=== PATIENT | male | born 1985 | race Caucasian/White ===

== ENCOUNTER 2016-12-30 13:09 | Emergency (ER) | payer OTHER ==
[~2016-12-30 13:09] MED LIST: ACETAMINOPHEN-H1 TA2 PO; AMPICILLIN500 MG PO; ANUSOL-HC25 MG R; BACTRIM DS 8001 TA1 PO; BACTROBAN CREAM15 GM T; CELEXA10 MG PO; CEPHALEXIN500 M1 PO; CIPRO500 MG PO; CLARITIN10 MG PO; CLEOCIN150 MG PO; CYCLOBENZAPRINE10 MG PO; CYCLOBENZAPRINE5 M3 PO; Catapres-Tts 20.2 MG PO; FLONASE ALLERG9.9 ML NAS; HYDROCODONE BIT1 T11 PO; IBU800 MG PO; IBUPROFEN400 MG PO; KEFLEX500 MG PO; KLOR-CON M2020 MEQ PO; LAMICTAL100 MG PO; LANTUS100 U/ML SC; LEVEMIR100 U/ML SC; LISINOPRIL5 MG PO; LOMOTIL 0.025 M1 TA1 PO; MOTRIN800 MG PO; Motrin,Rufen800 MG PO; NAPROSYN500 MG PO; NEURONTIN100 MG PO; NEURONTIN300 MG PO; NORCO 325 MG-51 TAB PO; NOVOLIN 70100 UNIT/1 SQ; NOVOLIN R100 U/ML SC; NOVOLOG 701 UNIT/0.0 SC; NYSTATIN AND TR1 CRE T; PEN-V500 MG PO; PERIDEX 480 ML480 ML PO; ROBITUSSIN AC 110 ML PO; ULTRAM50 MG PO; VALIUM5 MG PO; VISTARIL25 M2 PO; VOLTAREN50 M1 PO; ZITHROMAX250 MG PO
[2016-12-30 13:26] VITALS: BP 130/88
[2016-12-30] MEDS ORDERED: BACTRIM 400-801 EACH PO (13:50)
== END 2016-12-30 13:57 ==
LOC: ED 13:09
DX: L02.415 Cutaneous abscess of right lower limb (principal); Z88.6 Allergy status to analgesic agent; Z79.899 Other long term (current) drug therapy; F17.200 Nicotine dependence, unspecified, uncomplicated

== ENCOUNTER 2017-04-25 19:58 | Emergency (ER) | payer OTHER ==
[~2017-04-25] VITALS: Ht 180.3 cm; Wt 74.8 kg
[~2017-04-25 19:58] MED LIST changes: +BACTRIM 400-801 EACH PO
[2017-04-25 20:19] VITALS: BP 124/81
[2017-04-25] MEDS ORDERED: SEPTDS PO (20:37)
[2017-04-25] MEDS ORDERED: KEFLEX500 M1 PO (20:37)
== END 2017-04-25 20:42 | disposition home or self-care (01) ==
LOC: ED 19:58
DX: M86.8X1 Other osteomyelitis, shoulder (principal); E10.65 Type 1 diabetes mellitus with hyperglycemia; E87.1 Hypo-osmolality and hyponatremia; E10.621 Type 1 diabetes mellitus with foot ulcer; F17.200 Nicotine dependence, unspecified, uncomplicated; Z79.4 Long term (current) use of insulin; Z79.899 Other long term (current) drug therapy; Z88.8 Allergy status to other drugs, medicaments and biological substances

== ENCOUNTER 2017-07-08 17:30 | Emergency (ER) | payer OTHER ==
[~2017-07-08] VITALS: Ht 177.8 cm; Wt 70.3 kg
[~2017-07-08 17:30] MED LIST changes: +KEFLEX500 M1 PO; +SEPTDS PO
[2017-07-08 18:10] VITALS: BP 135/82
[2017-07-08] MEDS ORDERED: NORCO 5-325 TA1 EACH PO (19:25)
== END 2017-07-08 19:30 | disposition home or self-care (01) ==
LOC: ED 17:30
DX: S62.337A Displaced fracture of neck of fifth metacarpal bone, left hand, initial encounter for closed fracture (principal); F17.200 Nicotine dependence, unspecified, uncomplicated; E10.621 Type 1 diabetes mellitus with foot ulcer; L97.509 Non-pressure chronic ulcer of other part of unspecified foot with unspecified severity; Z79.899 Other long term (current) drug therapy; Z88.6 Allergy status to analgesic agent; Z79.4 Long term (current) use of insulin; W22.03XA Walked into furniture, initial encounter; Y93.89 Activity, other specified; Y92.89 Other specified places as the place of occurrence of the external cause; Y99.9 Unspecified external cause status

== ENCOUNTER 2017-07-14 09:52 | Emergency (ER) | payer SELFPAY ==
[~2017-07-14] VITALS: Wt 74.8 kg
[~2017-07-14 09:52] MED LIST changes: +NORCO 5-325 TA1 EACH PO
[2017-07-14 09:58] VITALS: BP 139/92
[2017-07-14] MEDS ORDERED: NAPROSYN500 MG PO (10:06)
== END 2017-07-14 10:45 | disposition home or self-care (01) ==
LOC: ED 09:52
DX: S62.337D Displaced fracture of neck of fifth metacarpal bone, left hand, subsequent encounter for fracture with routine healing (principal); R03.0 Elevated blood-pressure reading, without diagnosis of hypertension; F17.200 Nicotine dependence, unspecified, uncomplicated; Z88.6 Allergy status to analgesic agent; Z79.899 Other long term (current) drug therapy; X58.XXXD Exposure to other specified factors, subsequent encounter

== ENCOUNTER → 2017-07-21 | Outpatient (CLI) | payer SELFPAY ==
[2017-07-21 17:19] LABS: HEMATOCRIT 41.7 % (42.0-52.0); HEMOGLOBIN 14.2 g/dl (14.0-18.0); MEAN CELL VOLUME 92.5 fl (80.0-94.0); MEAN CORPUSCULAR HGB 31.5 pg (27.0-31.0); MEAN CORPUSCULAR HGB CONC 34.1 g/dl (33.0-37.0); MEAN PLATELET VOLUME 11.5 fl (9.6-12.3); RED BLOOD COUNT 4.51 10*6/uL (4.50-5.90); RED CELL DISTRI WIDTH 12.7 % (0-14.5); WHITE BLOOD COUNT 6.9 10*3/uL (4.8-10.8)
[2017-07-21 17:49] LABS: ALBUMIN 3.7 gm/dl (3.1-4.5); BUN 14 mg/dl (7-24); CHLORIDE 101 mmol/L (98-107); POTASSIUM 3.9 mmol/L (3.5-5.1); SGOT/AST 23 IU/L (3-35); SODIUM 137 mmol/L (136-145)
[2017-07-21 17:50] LABS: ALKALINE PHOSPHATASE 130 U/L (45-117); CREATININE 1.07 mg/dL (0.70-1.30); SGPT/ALT 27 U/L (12-78); TOTAL PROTEIN 7.2 gm/dL (6.4-8.2)
== END | disposition home or self-care (01) ==
LOC: RESCLI 02:18
PROVIDERS: Internal Medicine
DX: F41.9 Anxiety disorder, unspecified (principal); M62.838 Other muscle spasm; E10.9 Type 1 diabetes mellitus without complications; G62.9 Polyneuropathy, unspecified; F32.9 Major depressive disorder, single episode, unspecified; Z87.891 Personal history of nicotine dependence

== ENCOUNTER → 2017-08-04 | Outpatient (CLI) | payer SELFPAY | END | disposition home or self-care (01) | LOC: RESCLI 03:00 | DX: F41.9 Anxiety disorder, unspecified (principal); E10.9 Type 1 diabetes mellitus without complications; G62.9 Polyneuropathy, unspecified; F31.9 Bipolar disorder, unspecified; N52.1 Erectile dysfunction due to diseases classified elsewhere ==

== ENCOUNTER 2017-09-22 13:03 | Emergency (ER) | payer SELFPAY ==
[~2017-09-22] VITALS: Ht 180.3 cm; Wt 72.6 kg
[2017-09-22 13:13] VITALS: BP 98/67
[2017-09-22 13:37] LABS: BASO # 0.1 10*3/uL (0.0-0.1); BASO % 0.8 % (0.0-1.0); EOS # 0.2 10*3/uL (0.0-0.4); HEMATOCRIT 42.7 % (42.0-52.0); HEMOGLOBIN 14.7 g/dl (14.0-18.0); LYMPH # 2.8 10*3/uL (1.3-4.4); LYMPH % 26.3 % (27.0-41.0); MEAN CELL VOLUME 90.1 fl (80.0-94.0); MEAN CORPUSCULAR HGB CONC 34.4 g/dl (33.0-37.0); MEAN PLATELET VOLUME 11.1 fl (9.6-12.3); MONO # 0.5 10*3/uL (0.1-1.0); MONO % 5.1 % (3.0-9.0); NEUT # 6.9 10*3/uL (2.3-7.9); NEUT % 65.6 % (47.0-73.0); PLATELET COUNT AUTOMATED 183 10*3/uL (130-400); RED BLOOD COUNT 4.74 10*6/uL (4.50-5.90); RED CELL DISTRI WIDTH 12.2 % (0-14.5); WHITE BLOOD COUNT 10.5 10*3/uL (4.8-10.8)
[2017-09-22 13:51] LABS: ALBUMIN 4.1 gm/dl (3.1-4.5); ALKALINE PHOSPHATASE 122 U/L (45-117); BUN 20 mg/dl (7-24); CHLORIDE 102 mmol/L (98-107); CREATININE 1.52 mg/dL (0.70-1.30); POTASSIUM 4.1 mmol/L (3.5-5.1); SGOT/AST 20 IU/L (3-35); SGPT/ALT 28 U/L (12-78); SODIUM 137 mmol/L (136-145); TOTAL PROTEIN 7.3 gm/dL (6.4-8.2); TROPONIN I < 0.015 ng/ml (<0.045)
== END 2017-09-22 14:40 | disposition home or self-care (01) ==
LOC: ED 13:03
PROVIDERS: Nurse Practitioner Family
DX: E86.0 Dehydration (principal); M54.2 Cervicalgia; R05 Cough; R53.83 Other fatigue; R52 Pain, unspecified; R06.00 Dyspnea, unspecified; E10.9 Type 1 diabetes mellitus without complications; F17.200 Nicotine dependence, unspecified, uncomplicated; Z79.4 Long term (current) use of insulin; Z88.6 Allergy status to analgesic agent; Z79.899 Other long term (current) drug therapy

== ENCOUNTER → 2017-09-30 | Outpatient (CLI) | payer SELFPAY | END | disposition home or self-care (01) | LOC: LAB 01:22 → RESCLI 01:22 | DX: E10.9 Type 1 diabetes mellitus without complications (principal) ==

== ENCOUNTER → 2018-01-08 | Outpatient (CLI) | payer SELFPAY ==
[~2018-01-08] MED LIST changes: +CLINDAMYCIN150 MG PO; +VIBRAMYCIN100 MG PO; +XANAX0.5 MG PO; +ZANAFLEX4 M1 PO; +ZOFRAN ODT4 MG SL
== END | disposition home or self-care (01) ==
LOC: RESCLI 02:30
DX: Z09 Encounter for follow-up examination after completed treatment for conditions other than malignant neoplasm (principal); E10.9 Type 1 diabetes mellitus without complications; G62.9 Polyneuropathy, unspecified; F41.9 Anxiety disorder, unspecified; F32.9 Major depressive disorder, single episode, unspecified; S92.901D Unspecified fracture of right foot, subsequent encounter for fracture with routine healing; F17.200 Nicotine dependence, unspecified, uncomplicated; Z82.49 Family history of ischemic heart disease and other diseases of the circulatory system; Z83.3 Family history of diabetes mellitus; Z71.6 Tobacco abuse counseling; X58.XXXD Exposure to other specified factors, subsequent encounter

== ENCOUNTER 2018-01-31 17:00 | Emergency (ER) | payer OTHER ==
[~2018-01-31] VITALS: Wt 68.9 kg
[~2018-01-31 17:00] MED LIST changes: -VIBRAMYCIN100 MG PO; -XANAX0.5 MG PO; -ZANAFLEX4 M1 PO; -ZOFRAN ODT4 MG SL
[2018-01-31 17:01] VITALS: BP 146/92
[2018-01-31] MEDS ORDERED: ZANAFLEX4 M1 PO (17:12)
[2018-01-31 17:54] LABS: BASO # 0.1 10*3/uL (0.0-0.1); BASO % 0.4 % (0.0-1.0); EOS % 0.2 % (1.0-4.0); HEMATOCRIT 49.4 % (42.0-52.0); HEMOGLOBIN 16.9 g/dl (14.0-18.0); LYMPH % 5.9 % (27.0-41.0); MEAN CELL VOLUME 91.8 fl (80.0-94.0); MEAN CORPUSCULAR HGB 31.4 pg (27.0-31.0); MEAN CORPUSCULAR HGB CONC 34.2 g/dl (33.0-37.0); MEAN PLATELET VOLUME 11.1 fl (9.6-12.3); MONO # 0.8 10*3/uL (0.1-1.0); MONO % 4.7 % (3.0-9.0); NEUT # 15.1 10*3/uL (2.3-7.9); NEUT % 88.5 % (47.0-73.0); PLATELET COUNT AUTOMATED 222 10*3/uL (130-400); RED BLOOD COUNT 5.38 10*6/uL (4.50-5.90); RED CELL DISTRI WIDTH 12.2 % (0-14.5); WHITE BLOOD COUNT 17.1 10*3/uL (4.8-10.8)
[2018-01-31 18:09] LABS: ALBUMIN 3.8 gm/dl (3.1-4.5); CREATININE 1.74 mg/dL (0.70-1.30); POTASSIUM 4.4 mmol/L (3.5-5.1); TOTAL PROTEIN 8.9 gm/dL (6.4-8.2)
[2018-01-31] MEDS ORDERED: ZOFRAN ODT4 MG SL (18:53)
[2018-01-31] MEDS ORDERED: ZITHROMAX250 MG PO (18:55)
[2018-02-02] MEDS ORDERED: NOVOLIN 70100 UNIT/1 SQ (23:47)
== END 2018-01-31 19:15 | disposition home or self-care (01) ==
LOC: ED 17:00
PROVIDERS: Emergency Medicine
DX: J40 Bronchitis, not specified as acute or chronic (principal); K29.70 Gastritis, unspecified, without bleeding; E10.9 Type 1 diabetes mellitus without complications; E10.40 Type 1 diabetes mellitus with diabetic neuropathy, unspecified; F17.200 Nicotine dependence, unspecified, uncomplicated; Z88.6 Allergy status to analgesic agent; Z79.4 Long term (current) use of insulin

== ENCOUNTER 2018-02-12 09:59 | Inpatient (IN) | payer OTHER ==
[~2018-02-12] VITALS: Ht 180.3 cm; Wt 70.1 kg
[~2018-02-12 09:59] MED LIST changes: +ZANAFLEX4 M1 PO; +ZOFRAN ODT4 MG SL
[2018-02-12 10:02] VITALS: BP 130/93
[2018-02-12 10:44] LABS: BASO # 0.1 10*3/uL (0.0-0.1); BASO % 0.9 % (0.0-1.0); EOS # 0.3 10*3/uL (0.0-0.4); EOS % 2.9 % (1.0-4.0); HEMATOCRIT 44.2 % (42.0-52.0); HEMOGLOBIN 14.9 g/dl (14.0-18.0); LYMPH % 20.8 % (27.0-41.0); MEAN CELL VOLUME 91.5 fl (80.0-94.0); MEAN CORPUSCULAR HGB 30.8 pg (27.0-31.0); MEAN CORPUSCULAR HGB CONC 33.7 g/dl (33.0-37.0); MEAN PLATELET VOLUME 10.7 fl (9.6-12.3); MONO # 0.6 10*3/uL (0.1-1.0); MONO % 6.5 % (3.0-9.0); NEUT # 6.5 10*3/uL (2.3-7.9); NEUT % 68.6 % (47.0-73.0); PLATELET COUNT AUTOMATED 257 10*3/uL (130-400); RED BLOOD COUNT 4.83 10*6/uL (4.50-5.90); RED CELL DISTRI WIDTH 12.1 % (0-14.5); WHITE BLOOD COUNT 9.5 10*3/uL (4.8-10.8)
[2018-02-12 10:59] LABS: ALBUMIN 3.4 gm/dl (3.1-4.5); ALKALINE PHOSPHATASE 150 U/L (45-117); BUN 15 mg/dl (7-24); CHLORIDE 95 mmol/L (98-107); CREATININE 1.32 mg/dL (0.70-1.30); POTASSIUM 4.3 mmol/L (3.5-5.1); SGOT/AST 14 IU/L (3-35); SGPT/ALT 18 U/L (12-78); SODIUM 131 mmol/L (136-145); TOTAL PROTEIN 8.2 gm/dL (6.4-8.2)
[2018-02-12 13:08] VITALS: BP 122/84
[2018-02-12 13:30] VITALS: BP 119/90
[2018-02-12] MEDS ORDERED: XANAX0.5 MG PO (14:31)
[2018-02-12 16:00] VITALS: BP 152/96
[2018-02-12 20:00] VITALS: BP 131/88
[2018-02-13] VITALS: BP 136/89
[2018-02-13 06:29] LABS: BASO # 0.1 10*3/uL (0.0-0.1); BASO % 0.7 % (0.0-1.0); EOS # 0.3 10*3/uL (0.0-0.4); EOS % 3.8 % (1.0-4.0); HEMATOCRIT 38.7 % (42.0-52.0); LYMPH # 2.4 10*3/uL (1.3-4.4); LYMPH % 28.3 % (27.0-41.0); MEAN CORPUSCULAR HGB 30.5 pg (27.0-31.0); MEAN CORPUSCULAR HGB CONC 32.8 g/dl (33.0-37.0); MEAN PLATELET VOLUME 11.1 fl (9.6-12.3); MONO # 0.6 10*3/uL (0.1-1.0); MONO % 7.4 % (3.0-9.0); NEUT % 59.4 % (47.0-73.0); PLATELET COUNT AUTOMATED 230 10*3/uL (130-400); RED BLOOD COUNT 4.16 10*6/uL (4.50-5.90); WHITE BLOOD COUNT 8.4 10*3/uL (4.8-10.8)
[2018-02-13 06:33] LABS: HEMOGLOBIN 12.7 g/dl (14.0-18.0)
[2018-02-13 06:46] LABS: ACT PARTIAL THROMBO TIME 25.1 SECONDS (20.8-31.5); ALBUMIN 2.6 gm/dl (3.1-4.5); ALKALINE PHOSPHATASE 125 U/L (45-117); BUN 14 mg/dl (7-24); CHLORIDE 103 mmol/L (98-107); CHOLESTEROL 119 mg/dL (<200); CREATININE 1.08 mg/dL (0.70-1.30); FREE T4 1.06 ng/dl (0.76-1.46); HDL CHOLESTEROL 41 mg/dl (40-60); LDL CHOLESTEROL 62 mg/dL (9-159); PHOSPHOROUS 3.5 mg/dL (2.5-4.9); POTASSIUM 4.4 mmol/L (3.5-5.1); SGOT/AST 12 IU/L (3-35); SGPT/ALT 15 U/L (12-78); SODIUM 139 mmol/L (136-145); TOTAL PROTEIN 6.4 gm/dL (6.4-8.2); TRIGLYCERIDES 82 mg/dl (<150); VLDL CHOLESTEROL 16 mg/dL (6-40)
[2018-02-13 07:30] LABS: VITAMIN D, 25-HYDROXY 28.9 ng/mL (30-100)
[2018-02-13 08:00] VITALS: BP 130/80
[2018-02-13 12:00] VITALS: BP 147/90
[2018-02-13] MEDS ORDERED: VIBRAMYCIN100 MG PO (15:01)
== END 2018-02-13 15:54 | disposition home or self-care (01) | DRG 571 ==
LOC: ED 09:59 → 5E 13:13 → EDHOLD 13:13 → 5E 13:17
PROVIDERS: Internal Medicine; Physician Assistant
PROC: 0JBR0ZZ Excision of Left Foot Subcutaneous Tissue and Fascia, Open Approach (ICD-10-PCS; principal; 2018-02-13)
DX: L03.116 Cellulitis of left lower limb (principal); L02.612 Cutaneous abscess of left foot; E87.1 Hypo-osmolality and hyponatremia; E44.1 Mild protein-calorie malnutrition; E10.42 Type 1 diabetes mellitus with diabetic polyneuropathy; D72.810 Lymphocytopenia; R00.0 Tachycardia, unspecified; E10.610 Type 1 diabetes mellitus with diabetic neuropathic arthropathy; E10.65 Type 1 diabetes mellitus with hyperglycemia; E87.8 Other disorders of electrolyte and fluid balance, not elsewhere classified; Z88.8 Allergy status to other drugs, medicaments and biological substances; Z83.3 Family history of diabetes mellitus; Z82.0 Family history of epilepsy and other diseases of the nervous system; Z86.14 Personal history of Methicillin resistant Staphylococcus aureus infection; Z72.0 Tobacco use; Z71.6 Tobacco abuse counseling; Z68.30 Body mass index [BMI] 30.0-30.9, adult

== ENCOUNTER 2018-10-16 22:09 | Emergency (ER) | payer OTHER ==
[~2018-10-16] VITALS: Ht 180.3 cm; Wt 69.4 kg
[~2018-10-16 22:09] MED LIST changes: +LEVOFLOXACIN500 MG PO; +ONDANSETRON HYDR4 M1 PO; +OXYCODONE HCL5 MG PO; +VIBRAMYCIN100 MG PO; +VITAMIN D-32000 UNI1 PO; +XANAX0.5 MG PO; +XANAX1 MG PO
[2018-10-16 22:15] VITALS: BP 147/95
[2018-10-16 23:08] LABS: BASO # 0.1 10*3/uL (0.0-0.1); BASO % 0.8 % (0.0-1.0); EOS # 0.4 10*3/uL (0.0-0.4); EOS % 4.6 % (1.0-4.0); HEMATOCRIT 34.9 % (42.0-52.0); HEMOGLOBIN 11.3 g/dl (14.0-18.0); LYMPH % 23.1 % (27.0-41.0); MEAN CELL VOLUME 85.7 fl (80.0-94.0); MEAN CORPUSCULAR HGB 27.8 pg (27.0-31.0); MEAN CORPUSCULAR HGB CONC 32.4 g/dl (33.0-37.0); MEAN PLATELET VOLUME 9.9 fl (9.6-12.3); MONO # 0.6 10*3/uL (0.1-1.0); MONO % 6.9 % (3.0-9.0); NEUT # 5.5 10*3/uL (2.3-7.9); NEUT % 64.4 % (47.0-73.0); PLATELET COUNT AUTOMATED 327 10*3/uL (130-400); RED BLOOD COUNT 4.07 10*6/uL (4.50-5.90); RED CELL DISTRI WIDTH 13.2 % (0-14.5); WHITE BLOOD COUNT 8.6 10*3/uL (4.8-10.8)
[2018-10-16 23:23] LABS: ALBUMIN 2.4 gm/dl (3.1-4.5); ALKALINE PHOSPHATASE 149 U/L (45-117); BUN 11 mg/dl (7-24); CHLORIDE 100 mmol/L (98-107); CREATININE 1.13 mg/dL (0.70-1.30); POTASSIUM 3.9 mmol/L (3.5-5.1); SGOT/AST 13 IU/L (3-35); SGPT/ALT 13 U/L (12-78); SODIUM 134 mmol/L (136-145); TOTAL PROTEIN 7.5 gm/dL (6.4-8.2)
[2018-10-16 23:28] LABS: ACETAMINOPHEN (TYLENOL) < 2.0 ug/ml (10-30); ETHYL ALCOHOL < 3.0 mg/dl (<3)
[2018-10-17 03:35] LABS: BILIRUBIN NEGATIVE (NEGATIVE); BLOOD 1+ (NEGATIVE); CLARITY CLEAR (CLEAR); COLOR YELLOW (YELLOW); GLUCOSE 3+ (NEGATIVE); KETONE NEGATIVE (NEGATIVE); LEUKO ESTERASE NEGATIVE (NEGATIVE); NITRITE NEGATIVE (NEGATIVE); UROBILINOGEN 0.2 E.U./dl (0.2-1.0)
[2018-10-17 03:43] LABS: URINE AMPHETAMINES < 1000 (1000ng/ml); URINE BARBITURATES < 200 (200ng/ml); URINE BENZODIAZEPINES < 200 (200ng/ml); URINE CANNABINOIDS (THC) < 50 (50ng/ml); URINE COCAINE < 300 (300ng/ml); URINE METHADONE < 300 (300ng/ml); URINE OPIATES < 300 (300ng/ml)
[2018-10-17 03:44] LABS: URINE PHENCYCLIDINE < 25 (25ng/ml)
[2018-10-17 03:48] LABS: BACTERIA 1+; WBC 0-2 wbc/hpf (0-5)
== END 2018-10-17 16:15 | disposition short-term general hospital (02) ==
LOC: ED 22:09
PROVIDERS: Student in an Organized Health Care Education/Training Program
DX: F32.9 Major depressive disorder, single episode, unspecified (principal); M79.671 Pain in right foot; G89.29 Other chronic pain; E10.40 Type 1 diabetes mellitus with diabetic neuropathy, unspecified; I10 Essential (primary) hypertension; F17.210 Nicotine dependence, cigarettes, uncomplicated; Z88.6 Allergy status to analgesic agent; Z79.4 Long term (current) use of insulin; Z79.899 Other long term (current) drug therapy

== ENCOUNTER 2019-04-05 13:23 | Emergency (ER) | payer OTHER ==
[~2019-04-05] VITALS: Ht 180.3 cm; Wt 77.1 kg
[2019-04-05 13:24] VITALS: BP 141/82
[2019-04-05] MEDS ORDERED: NAPROSYN500 MG PO (15:56)
== END 2019-04-05 15:48 | disposition home or self-care (01) ==
LOC: ED 13:23
DX: M25.561 Pain in right knee (principal); M79.89 Other specified soft tissue disorders; L53.9 Erythematous condition, unspecified; E11.9 Type 2 diabetes mellitus without complications; F17.210 Nicotine dependence, cigarettes, uncomplicated; Z89.511 Acquired absence of right leg below knee; Z88.6 Allergy status to analgesic agent; Z88.8 Allergy status to other drugs, medicaments and biological substances; Z79.4 Long term (current) use of insulin; Z79.899 Other long term (current) drug therapy; Z79.2 Long term (current) use of antibiotics

== ENCOUNTER 2019-04-12 22:47 | Inpatient (IN) | payer OTHER ==
[~2019-04-12] VITALS: Ht 180.3 cm; Wt 71.7 kg
[2019-04-12 22:48] VITALS: BP 140/86
--- NOTE | 2019-04-12 23:20 | NUR ---
PTS FIANCES NUMBER, TRACEY [phone].
[2019-04-12 23:49] LABS: BASO # 0.1 10*3/uL (0.0-0.1); BASO % 0.6 % (0.0-1.0); EOS # 0.1 10*3/uL (0.0-0.4); EOS % 0.6 % (1.0-4.0); HEMATOCRIT 33.4 % (42.0-52.0); HEMOGLOBIN 11.3 g/dl (14.0-18.0); LYMPH # 1.7 10*3/uL (1.3-4.4); LYMPH % 10.3 % (27.0-41.0); MEAN CELL VOLUME 88.6 fl (80.0-94.0); MEAN CORPUSCULAR HGB CONC 33.8 g/dl (33.0-37.0); MEAN PLATELET VOLUME 11.2 fl (9.6-12.3); MONO # 1.2 10*3/uL (0.1-1.0); MONO % 7.6 % (3.0-9.0); NEUT % 80.6 % (47.0-73.0); PLATELET COUNT AUTOMATED 331 10*3/uL (130-400); RED BLOOD COUNT 3.77 10*6/uL (4.50-5.90); RED CELL DISTRI WIDTH 12.9 % (0-14.5); WHITE BLOOD COUNT 16.1 10*3/uL (4.8-10.8)
[2019-04-12 23:57] VITALS: BP 127/87
[2019-04-13] VITALS (9 sets, daily range): BP systolic 113–129; BP diastolic 44–81
[2019-04-13 00:04] LABS: ALBUMIN 2.8 gm/dl (3.1-4.5); ALKALINE PHOSPHATASE 117 U/L (45-117); BUN 24 mg/dl (7-24); CHLORIDE 92 mmol/L (98-107); CREATININE 1.55 mg/dL (0.70-1.30); POTASSIUM 4.1 mmol/L (3.5-5.1); SGOT/AST 10 IU/L (3-35); SGPT/ALT 10 U/L (12-78); SODIUM 126 mmol/L (136-145); TOTAL PROTEIN 7.7 gm/dL (6.4-8.2)
--- NOTE | 2019-04-13 00:30 | NUR ---
PT RESTING IN BED. STATES THAT HIS PAIN IN MORE "TOLERABLE" HE IS IN NO ACUTE DISTRESS AT THIS TIME. VS STABLE. WILL CONTINUE TO MONITOR
--- NOTE | 2019-04-13 01:30 | NUR ---
A 33, admitted to 4E, under the services of JAVIER Reyes DO with a diagnosis of HYPERGLYCEMIA, RIGHT KNEE PAIN. Chief complaint is RIGHT KNEE PAIN. Patient arrived via stretcher from ER. Monitor applied. Initial assessment completed. Vital signs taken and recorded. JAVIER REYES DO notified of admission to the unit. Orders received. See assessment for past medical history, medications and allergies. Patient and/or family oriented to unit. [facility] visitation policy reviewed. Clothing/patient valuable form completed. JAGRUTI SKINNER
--- NOTE | 2019-04-13 02:00 | NUR ---
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 Wound staged as stage II.
[2019-04-13 03:19] LABS: BASO # 0.1 10*3/uL (0.0-0.1); BASO % 0.5 % (0.0-1.0); EOS # 0.2 10*3/uL (0.0-0.4); EOS % 1.6 % (1.0-4.0); HEMATOCRIT 32.6 % (42.0-52.0); HEMOGLOBIN 10.9 g/dl (14.0-18.0); LYMPH # 1.9 10*3/uL (1.3-4.4); LYMPH % 12.9 % (27.0-41.0); MEAN CELL VOLUME 88.6 fl (80.0-94.0); MEAN CORPUSCULAR HGB 29.6 pg (27.0-31.0); MEAN CORPUSCULAR HGB CONC 33.4 g/dl (33.0-37.0); MEAN PLATELET VOLUME 10.6 fl (9.6-12.3); MONO # 1.1 10*3/uL (0.1-1.0); MONO % 7.5 % (3.0-9.0); NEUT # 11.4 10*3/uL (2.3-7.9); NEUT % 77.1 % (47.0-73.0); PLATELET COUNT AUTOMATED 295 10*3/uL (130-400); RED BLOOD COUNT 3.68 10*6/uL (4.50-5.90); RED CELL DISTRI WIDTH 12.9 % (0-14.5); WHITE BLOOD COUNT 14.7 10*3/uL (4.8-10.8)
[2019-04-13 03:33] LABS: BUN 23 mg/dl (7-24); CHLORIDE 96 mmol/L (98-107); SODIUM 131 mmol/L (136-145)
[2019-04-13 03:35] LABS: ALBUMIN 2.6 gm/dl (3.1-4.5); ALKALINE PHOSPHATASE 102 U/L (45-117); BUN 24 mg/dl (7-24); CHLORIDE 96 mmol/L (98-107); CHOLESTEROL 100 mg/dL (<200); HDL CHOLESTEROL 29 mg/dl (40-60); PHOSPHOROUS 3.2 mg/dL (2.5-4.9); SGOT/AST 8 IU/L (3-35); SGPT/ALT 9 U/L (12-78); SODIUM 131 mmol/L (136-145); TOTAL PROTEIN 7.1 gm/dL (6.4-8.2)
[2019-04-13 03:41] LABS: LDL CHOLESTEROL 52 mg/dL (9-159); TRIGLYCERIDES 97 mg/dl (<150); VLDL CHOLESTEROL 19 mg/dL (6-40)
--- NOTE | 2019-04-13 05:24 | NUR ---
CARLOS A QUILES [id number] Please refer to the physician's history and physical for past medical history, comorbid conditions, and allergies. Diagnosis: HYPERGLYCEMIA DUE TO TYPE 1 DIABETES, ABSCESS Asaf Score: 19,LOW OR NO RISK WOUND DESCRIPTIONS: Wound Number: 1 Location of the wound: right lateral knee Type of wound: medical educator related pressure injury stage 2 Thickness: Partial Size: 1.7cm x 1.5cm x 0.1cm Tunneling: none Undermining: none Sinus Tract: none Presence of Exudate: Serosanguineous Amount: Light Color: Red Odor: None Periwound Skin Appearance: erythema 17.5cm x 15.0cm Wound edges: approximated Pain (associated with wound): none at time of assessment How does patient state this happened? pt stated it started hurting one week ago and the redness started 3 days ago he states that he had the surgery back in february at [facility] Wound Number: 2 Location of the wound: right medial aspect of knee Type of wound: medical educator related pressure injury unstageable Thickness: Partial Size: 0.4cm x 0.6cm x <0.1cm Tunneling: none Undermining: none Sinus Tract: none Presence of Exudate: none Amount: none Color: yellow Odor: None Periwound Skin Appearance: erythema 17.5cm x 15.0cm Wound edges: approximated Pain (associated with wound): none at time of assessment How does patient state this happened? pt stated it started hurting one week ago and the redness started 3 days ago he states that he had the surgery back in february at [facility] Wound Number: 3 Location of the wound: right lateral aspect of stump Type of wound: medical educator related pressure injury unstageable Thickness: Partial Size: 0.6cm x 0.4cm x <0.1cm Tunneling: none Undermining: none Sinus Tract: none Presence of Exudate: none Amount: none Color: yellow, brown, red Odor: None Periwound Skin Appearance: erythema 17.5cm x 15cm Wound edges: approximated Pain (associated with wound): none at time of assessment How does patient state this happened? pt stated it started hurting one week ago and the redness started 3 days ago he states that he had the surgery back in february at [facility] Surface the patient is resting on: Isoflex SKIN PREVENTION RECOMMENDATION: 1. Pressure redistribution support surface as appropriate 2. Elevate heels 3. Remove boots/TEDS every shift and reapply 4. Head of bed 30 degrees as tolerated 5. Assess nutrition and hydration 6. Manage moisture 7. Avoid the use of containment devices while in bed 8. Use absorptive products on surfaces limit layers of linens on bed 9. Turn and reposition every 1-2 hours in bed and every 1 hour in chair as tolerated 10. Weight shifts every 15 minutes while up in chair 11. Offloading with pillows or device to keep heels elevated off bed 12. Monitor skin at least every shift 13. Inspect under medical devices twice a day WOUND TREATMENT RECOMMENDATIONS: Dr. Nielsen is on consult for abscess. Full thickness guidelines: Cleanse right lateral knee, right medial aspect of knee and right distal stump with nss and apply sureprep around the wound therahoney to wound bed and cover with dsd daily and prn for soiling.
--- NOTE | 2019-04-13 06:20 | NUR ---
CALL PLACED TO DR. ROMERO REGARDING BLOOD SUGAR OF 374 AND 20 UNITS NEEDED PER SLIDING SCALE, HE ADVISED ME TO GIVE THE 20 UNITS AND FOR DAY SHIFT TO HOLD 1000 INSULIN. DOCUMENTED ON JUL.
--- NOTE | 2019-04-13 06:31 | NUR ---
CALL PLACED TO DR. BATES, REACHED ANSWERING SERVICE, SPOKE WITH JOSE ANGEL, GAVE REFERAL FOR CONULT FOR LOW SODIUM LEVEL. CALLED AND SPOKE WITH DR. ALEXANDER ADVISED OF CONSULT ORDER FOR ABCESS RIGHT KNEE/STUMP.
--- NOTE | 2019-04-13 09:02 | NUR ---
Dr. Blair notified of wound care recommendations.
--- NOTE | 2019-04-13 09:43 | NUR ---
IN TO SEE PT.
--- NOTE | 2019-04-13 09:46 | NUR ---
OFF FLOOR FOR ULTRASOUND
--- NOTE | 2019-04-13 10:58 | NUR ---
MESSAGE FOR CONSULT LEFT ON 'S ANSWERING SERVICE. AWAITING CALL BACK.
--- NOTE | 2019-04-13 12:24 | NUR ---
PER PT, MORPHINE WAS INEFFECTIVE FOR PAIN. PAIN RATED 10/10. NOTIFIED . SAID HE WOULD ORDER SOMETHING ELSE.
--- NOTE | 2019-04-13 16:00 | NUR ---
OFF FLOOR FOR I&D WITH .
--- NOTE | 2019-04-13 17:46 | NUR ---
CONSULT CALLED TO 'S ANSWERING SERVICE.
--- NOTE | 2019-04-13 17:48 | NUR ---
CALLED BACK. SAID SHE WOULD SEE THE PT TOMORROW.
[2019-04-13 18:50] LABS: BODY FLUID WBC 1168 /uL
--- NOTE | 2019-04-13 19:05 | NUR ---
ARRIVED ON SHIFT, PATIENT CURRENTLY OFF FLOOR IN SURGERY, RECEIVED REPORT FROM OFFGOING NURSE, AND SURGICAL NURSE. WHITE BOARD UPDATED. JAGRUTI VALENTINN, RN
[2019-04-13 19:30] LABS: BF LYMPHOCYTES 9 %; BF MONOCYTES 8 %; BF NEUTROPHILS 82 %
--- NOTE | 2019-04-13 19:45 | NUR ---
24 HR chart check completed.
[2019-04-13 20:42] LABS: BILIRUBIN NEGATIVE (NEGATIVE); BLOOD TRACE-INTACT (NEGATIVE); CLARITY CLEAR (CLEAR); COLOR YELLOW (YELLOW); GLUCOSE 3+ (NEGATIVE); KETONE 1+ (NEGATIVE); LEUKO ESTERASE NEGATIVE (NEGATIVE); NITRITE NEGATIVE (NEGATIVE); PH 5.5 (5.0-9.0); UROBILINOGEN 0.2 E.U./dl (0.2-1.0)
[2019-04-13 20:48] LABS: MUCOUS 1+
[2019-04-14] VITALS: BP 128/65
--- NOTE | 2019-04-14 05:41 | NUR ---
PATIENT SLEPT THROUGHOUT THE NIGHT, DID NOT AWAKEN WHEN I HUNG PATIENTS IV ATB. RESPIRATIONS EVEN AND NON LABORED, HR REMAINS ELEVATED AT 100 +.
--- NOTE | 2019-04-14 06:01 | NUR ---
PATIENT C/O PAIN TO RIGHT STUMP 6/10 MEDICATED WITH PERCOCET ORDERED.
[2019-04-14 07:18] LABS: BASO # 0.1 10*3/uL (0.0-0.1); BASO % 0.4 % (0.0-1.0); EOS # 0.1 10*3/uL (0.0-0.4); EOS % 0.9 % (1.0-4.0); HEMATOCRIT 30.7 % (42.0-52.0); HEMOGLOBIN 9.7 g/dl (14.0-18.0); LYMPH # 2.1 10*3/uL (1.3-4.4); LYMPH % 12.9 % (27.0-41.0); MEAN CELL VOLUME 89.8 fl (80.0-94.0); MEAN CORPUSCULAR HGB 28.4 pg (27.0-31.0); MEAN CORPUSCULAR HGB CONC 31.6 g/dl (33.0-37.0); MEAN PLATELET VOLUME 10.7 fl (9.6-12.3); MONO # 1.2 10*3/uL (0.1-1.0); MONO % 7.8 % (3.0-9.0); NEUT # 12.3 10*3/uL (2.3-7.9); NEUT % 77.3 % (47.0-73.0); PLATELET COUNT AUTOMATED 302 10*3/uL (130-400); RED BLOOD COUNT 3.42 10*6/uL (4.50-5.90); RED CELL DISTRI WIDTH 13.2 % (0-14.5); WHITE BLOOD COUNT 15.9 10*3/uL (4.8-10.8)
[2019-04-14 07:41] LABS: BUN 16 mg/dl (7-24); CHLORIDE 104 mmol/L (98-107); CREATININE 1.27 mg/dL (0.70-1.30); POTASSIUM 4.1 mmol/L (3.5-5.1); SODIUM 137 mmol/L (136-145)
[2019-04-14 08:00] VITALS: BP 120/64
--- NOTE | 2019-04-14 08:50 | NUR ---
Dr. Blair notified of wound care recommendations.
--- NOTE | 2019-04-14 09:00 | NUR ---
Sample Book Maker in to talk to patient. Patient states lives at home with family. There are few steps in the home. Physician: marianela harris Pharmacy: [facility] Home health services: none Patient's level of ADLs: INDEPENDENT Patient has working utilities: all working DME: patient states he has all that he needs, will not ellaborate on equipment he has at home Follow-up physician's appointment after d/c: will be made by hospitalist nurse director upon discharge Does patient want to access PORTAL?: no Discharge plan discussed with patient, he stated he lives at home, he states he is independent in adls and ambulation, he will return home when medically stable, when asked if there were any home needs patient stated he has everything he needs at home and the only person he wants to talk to is the doctor on when he can be discharged, case management will follow. MARANDA PAULA
--- NOTE | 2019-04-14 10:10 | NUR ---
Occupational Therapy evaluation offered this date. Patient reports he lives with his in a 2 fl home w/ 4 steps to enter, was independent in ADLs and used a prosthetic on RLE, but is currently using a knee scooter(sitting) x 1 wk since he was unable to use prosthetic on right. Patient refuses OT, wheeled walker use, bedside commode, or w/c use. Patient feels he can "hop" into the bathroom with the IV pole when needs to use the toilet. Discharge OT referral per patient;s request. Sara Flower OTR/l
[2019-04-14 12:00] VITALS: BP 122/66
--- NOTE | 2019-04-14 12:16 | NUR ---
PHYSICAL THERAPY Orders received for PT chart reviewed and attempted to see pt for evaluation however refusing any therapy or equipment at this time. States he is getting around his room with no problems "I hop" and has knee walker at home. Does not want walker or crutches. 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 Pt lives with his and she assists him as/if needed. Per pt no needs at this time and does not want any therapy at this time. Thank you Letty Duran PT
--- NOTE | 2019-04-14 14:03 | NUR ---
Nutritional Support Services Note: Pt is ordered a NCS diet. Dx of hyperglycemia due to Type I DM, abscess, BKA right lower ext. Appetite is good for meals, he is eating 100%. Pt declined diet instruction and supplement. Encouraged healthy eating. Encouraged BS control. Will follow as needed. Yanira Cardoso Rdn Ld
--- NOTE | 2019-04-14 14:07 | NUR ---
Pt has dx of severe protein calorie malnutrition. Will send pt a night snack and an afternoon snack to increase kcal and protein as he refuses a supplement at this time. Will follow. Yanira Cardoso Rdn Ld
[2019-04-14 16:00] VITALS: BP 120/68
--- NOTE | 2019-04-14 19:05 | NUR ---
ARRIVED ON SHIFT, INTRODUCED TO PATIENT, VANCOMYCIN RUNNING, NO NEEDS VOICED AT THIS TIME. WHITE BOARD UPDATED.
[2019-04-14 20:00] VITALS: BP 143/83
--- NOTE | 2019-04-14 20:03 | NUR ---
24 HR chart check completed.
--- NOTE | 2019-04-14 21:51 | NUR ---
PATIENT BLOOD SUGAR 45, HE IS ASYMPTOMATIC, HE CURRENTLY HAS NS RUNNING AT 100CC AN HOUR, GAVE 8 OUNCES OF ORANGE JUICE, REFUED TO EAT PEANUT BUTTER, GLUCOSE REFLEX ORDERED NM. TYLENOL 650MG GIVEN FOR ELEVATED TEMP.
--- NOTE | 2019-04-14 22:00 | NUR ---
DR ROMERO NOTIFIED OF BLOOD SUGAR OF 45, AND THAT I GAVE 480 CC OJ, AND OBTAINED GLUCOSE REFLEX, HE IS AGREEABLE TO THAT PLAN.
--- NOTE | 2019-04-14 22:20 | NUR ---
RECHECKED PATIENTS BLOOD SUGAR. BLOOD SUGAR NOW 99, PATIENT CONTINUES TO REFUSE PEANUT BUTTER, DR. ROMERO NOTIFIED.
--- NOTE | 2019-04-14 23:31 | NUR ---
RECHECKED, BARBIE, NOW 72, AFTER MUCH COAXING PATIENT TOOK I TABLESPOON OF PEANUT BUTTER.
[2019-04-15] VITALS (10 sets, daily range): BP systolic 109–149; BP diastolic 66–94
[2019-04-15 06:45] LABS: BASO # 0.1 10*3/uL (0.0-0.1); BASO % 0.4 % (0.0-1.0); EOS # 0.2 10*3/uL (0.0-0.4); EOS % 1.6 % (1.0-4.0); HEMATOCRIT 30.9 % (42.0-52.0); LYMPH # 1.8 10*3/uL (1.3-4.4); MEAN CELL VOLUME 89.3 fl (80.0-94.0); MEAN CORPUSCULAR HGB 28.9 pg (27.0-31.0); MEAN CORPUSCULAR HGB CONC 32.4 g/dl (33.0-37.0); MEAN PLATELET VOLUME 11.3 fl (9.6-12.3); MONO % 8.3 % (3.0-9.0); NEUT % 74.1 % (47.0-73.0); PLATELET COUNT AUTOMATED 327 10*3/uL (130-400); RED BLOOD COUNT 3.46 10*6/uL (4.50-5.90); RED CELL DISTRI WIDTH 13.1 % (0-14.5); WHITE BLOOD COUNT 12.2 10*3/uL (4.8-10.8)
[2019-04-15 06:54] LABS: BUN 11 mg/dl (7-24); CHLORIDE 107 mmol/L (98-107); CREATININE 1.03 mg/dL (0.70-1.30); POTASSIUM 4.2 mmol/L (3.5-5.1); SODIUM 139 mmol/L (136-145)
--- NOTE | 2019-04-15 09:00 | NUR ---
case management attempted to visit with patient, he is out of room for surgery, case management will visit at a later time today
--- NOTE | 2019-04-15 12:10 | NUR ---
PT REFUSING PICC LINE
--- NOTE | 2019-04-15 14:00 | NUR ---
PATIENT RE INSTRUCTED ON INCENTIVE SPIROMETRY.
--- NOTE | 2019-04-15 14:55 | NUR ---
PHYSICAL THERAPY PT reconsulted for ambulation attempted to see and evaluate pt in room however pt continues to refuse therapy stating he is "independent in room getting up on own" not using any AD discussed using a walker for safety and balance since surgery however pt states "I don't want it, I do better on my own plus they have an Iv in my wrist". Will follow for one more visit to discuss therapy if pt cont to refuse will discontinue order, thank you. Letty Duran PT
--- NOTE | 2019-04-15 15:00 | NUR ---
Patient approached for Occupational THerapy evaluation per Dr Denton for AdlS. Patient insists that he does not require any OT and that he is independent in ADLs and mobility and refuses evaluation. Patient had an I and D procedure today by Dr Denton. Right stump is wrapped in a large dressing. Patient earlier refused PICC line. He reports that he agrees to it now and was asking when it would be done.Patient understands that he needs the PICC line to received IV antibiotics. OTR will attempt OT evaluation tomorrow. If patient declines then d/c OT referral. Sara Flower OTR/L
--- NOTE | 2019-04-15 19:59 | NUR ---
TOOK OVER CARE OF PT. ASSESSMENT COMPLETE AT THIS TIME. PT REPORTS PAIN TO RIGHT KNEE DUE TO PROCEDURE DONE EARLIER IN DAY. PT REPORTS PAIN IS 6/10. PERCOCOET GIVEN AT THIS TIME. WILL MONITOR FOR EFFECTIVENESS. IV FLUIDS INFUSING INTO RIGHT ARM IV SITE. CALL LIGHT IN REACH.
--- NOTE | 2019-04-15 20:59 | NUR ---
PERCOCET EFFECTIVE PER PT.
[2019-04-16] VITALS: BP 116/70
--- NOTE | 2019-04-16 02:00 | NUR ---
PT REFUSING TO WEAR CAMPGROUND CARETAKER. PHYSICIAN NOTIFIED. WILL CONTINUE TO MONITOR. CALL LIGHT IN REACH.
--- NOTE | 2019-04-16 06:00 | NUR ---
PT RESTING IN BED AT THIS TIME. NO COMPLAINTS ARE VOICED AT THIS TIME. RESPIRATIONS EASY AND UNLABORED ON ROOM AIR. WILL CONTINUE TO MONITOR, CALL LIGHT IN REACH.
[2019-04-16 06:56] LABS: BASO # 0.1 10*3/uL (0.0-0.1); BASO % 0.7 % (0.0-1.0); EOS # 0.2 10*3/uL (0.0-0.4); EOS % 2.9 % (1.0-4.0); HEMATOCRIT 33.4 % (42.0-52.0); HEMOGLOBIN 10.7 g/dl (14.0-18.0); LYMPH # 1.6 10*3/uL (1.3-4.4); LYMPH % 20.3 % (27.0-41.0); MEAN CELL VOLUME 89.5 fl (80.0-94.0); MEAN CORPUSCULAR HGB 28.7 pg (27.0-31.0); MEAN PLATELET VOLUME 10.8 fl (9.6-12.3); MONO # 0.5 10*3/uL (0.1-1.0); MONO % 6.2 % (3.0-9.0); NEUT # 5.5 10*3/uL (2.3-7.9); NEUT % 68.8 % (47.0-73.0); PLATELET COUNT AUTOMATED 358 10*3/uL (130-400); RED BLOOD COUNT 3.73 10*6/uL (4.50-5.90); RED CELL DISTRI WIDTH 12.9 % (0-14.5); WHITE BLOOD COUNT 8.1 10*3/uL (4.8-10.8)
[2019-04-16 07:20] LABS: BUN 7 mg/dl (7-24); CHLORIDE 104 mmol/L (98-107); CREATININE 0.77 mg/dL (0.70-1.30); POTASSIUM 4.3 mmol/L (3.5-5.1); SODIUM 137 mmol/L (136-145)
--- NOTE | 2019-04-16 07:55 | NUR ---
Requestign to speak with physician regarding need of PICC line. informed. Said he is driving into the hospital now and that it would be a little while before he can speak with patient.
[2019-04-16 08:00] VITALS: BP 156/96
--- NOTE | 2019-04-16 08:57 | NUR ---
AGREEABLE TO PICC LINE. DENIES FURTHER NEED TO SPEAK WITH .
[2019-04-16 12:00] VITALS: BP 144/93
--- NOTE | 2019-04-16 12:06 | NUR ---
TEXT DR LAIRD TO ASK HER WHAT TIME SHE WILL BE HERE TODAY TO WRITE PERSCRIPTION FOR HOME ANTIBIOTICS.
--- NOTE | 2019-04-16 14:20 | NUR ---
RECE[facility] A [facility] THAT [facility] NEED TO KNOW WHO PT PCP IS, IF PT HAS SOMEONE WHO WILL BE ABLE TO LEARN TO GIVE ANTIBIOTICS AND DEMOGRAPHICS. TALKED WITH PT AND HE STATES PCP IS DR SHUKLA, HE DOES HAVE FAMILY TO LEARN TO GIVE IT. INFORMATION ALONG WITH DEMOGRAPHICS FAXED TO [facility].
--- NOTE | 2019-04-16 14:40 | NUR ---
SURGICAL NURSE IN TO START PICC LINE INSERTION.
--- NOTE | 2019-04-16 15:01 | NUR ---
PER , PT IS OK TO DISCHARGE FROM HER STANDPOINT. SHE WILL LEAVE SCRIPTS ON THE CHART FOR HIS ANTIBIOTICS.
[2019-04-16] MEDS ORDERED: VANCO 1 GR1 GM/250 M IV (15:17)
--- NOTE | 2019-04-16 15:25 | NUR ---
PICC LINE INSERTED. AWAITING CXR RESULTS FOR PLACEMENT.
--- NOTE | 2019-04-16 15:28 | NUR ---
PER , PT IS OK FOR DISCHARGE TODAY. PT NEEDS TO SEE HER AT 0930 ON 04/19 FOR DRESSING CHANGE AND DRAIN REMOVAL IN HER OFFICE. AWARE, SAID HE WOULD PUT THE DISCHARGE ORDER IN.
--- NOTE | 2019-04-16 15:29 | NUR ---
PER DR TREVINO NOT PT WILL NOT BE DISCHARGED UNTIL AFTER WEEKEND. [facility]
--- NOTE | 2019-04-16 15:40 | NUR ---
[facility] AND [facility] NOTIFIED THAT PT IS GOING TO BE DISCHARGED TONIGHT AND THEY WILL BOTH START SERVICES TOMORROW MORNING.
[2019-04-16 16:00] VITALS: BP 136/93
[2019-04-16] MEDS ORDERED: Percocet 325 MG1 TAB PO (16:29)
--- NOTE | 2019-04-16 16:48 | NUR ---
[facility] CALLED AND SAYS THEY DID NOT GET PT SCRIP AND PICC LINE INFORMATION. REFAXED. CONFIRMATION SHEET RECEIVED THAT FAX WENT.
--- NOTE | 2019-04-16 17:39 | NUR ---
ORDERED NOT TO REMOVED DRESSING TO RT KNEE/WOUND PER FOR DISCHARGE PHOTO/MEASUREMENTS. PT SETUP WITH APPOINTMENT ON 04/19 FOR TO REMOVE DRAINS AND CLEANSE WOUNDS.
--- NOTE | 2019-04-16 18:17 | NUR ---
Discharge instructions reviewed with patient/family. Patient receptive and verbalizes understanding. Follow-up care arranged. Written instructions given to patient/family. CHAU ATKINS
--- NOTE | 2019-04-19 13:58 | NUR ---
[facility] called in for an update on the patient. AMANDA informed her patient was discharged with [facility]. -AMANDA Lipscomb
== END 2019-04-16 18:51 | disposition home health service (06) | DRG 710 ==
LOC: ED 22:47 → EDHOLD 04-13 00:51 → 4E 04-13 00:51
PROVIDERS: Family Medicine; Internal Medicine Nephrology; Orthopaedic Surgery; Physician Assistant; Student in an Organized Health Care Education/Training Program; ADMIT Internal Medicine
PROC: 0J9N0ZZ Drainage of Right Lower Leg Subcutaneous Tissue and Fascia, Open Approach (ICD-10-PCS; principal; 2019-04-13)
PROC: 0J9L0ZZ Drainage of Right Upper Leg Subcutaneous Tissue and Fascia, Open Approach (ICD-10-PCS; 2019-04-13)
PROC: 0M9N0ZZ Drainage of Right Knee Bursa and Ligament, Open Approach (ICD-10-PCS; 2019-04-13)
PROC: 0M9N0ZZ Drainage of Right Knee Bursa and Ligament, Open Approach (ICD-10-PCS; 2019-04-15)
PROC: 0J9L0ZZ Drainage of Right Upper Leg Subcutaneous Tissue and Fascia, Open Approach (ICD-10-PCS; 2019-04-15)
DX: A41.9 Sepsis, unspecified organism (principal); N17.0 Acute kidney failure with tubular necrosis; E43 Unspecified severe protein-calorie malnutrition; M00.9 Pyogenic arthritis, unspecified; T81.41XA Infection following a procedure, superficial incisional surgical site, initial encounter; Y83.5 Amputation of limb(s) as the cause of abnormal reaction of the patient, or of later complication, without mention of misadventure at the time of the procedure; Y92.89 Other specified places as the place of occurrence of the external cause; E87.1 Hypo-osmolality and hyponatremia; L03.115 Cellulitis of right lower limb; G89.29 Other chronic pain; L02.415 Cutaneous abscess of right lower limb; D72.829 Elevated white blood cell count, unspecified; R00.0 Tachycardia, unspecified; D64.9 Anemia, unspecified; E10.65 Type 1 diabetes mellitus with hyperglycemia; E10.42 Type 1 diabetes mellitus with diabetic polyneuropathy; I10 Essential (primary) hypertension; F41.9 Anxiety disorder, unspecified; F17.210 Nicotine dependence, cigarettes, uncomplicated; R65.20 Severe sepsis without septic shock; A49.02 Methicillin resistant Staphylococcus aureus infection, unspecified site; Z88.6 Allergy status to analgesic agent; Z88.8 Allergy status to other drugs, medicaments and biological substances; Z83.3 Family history of diabetes mellitus; Z81.8 Family history of other mental and behavioral disorders; Z89.511 Acquired absence of right leg below knee; Z71.6 Tobacco abuse counseling

== ENCOUNTER 2019-05-21 10:57 | Emergency (ER) | payer OTHER ==
[~2019-05-21] VITALS: Ht 180.3 cm; Wt 74.8 kg
[~2019-05-21 10:57] MED LIST changes: +Percocet 325 MG1 TAB PO; +VANCO 1 GR1 GM/250 M IV
[2019-05-21 11:02] VITALS: BP 140/96
[2019-05-21] MEDS ORDERED: VIBRAMYCIN100 MG PO (12:11)
== END 2019-05-21 12:31 | disposition home or self-care (01) ==
LOC: ED 10:57
DX: T82.898A Other specified complication of vascular prosthetic devices, implants and grafts, initial encounter (principal); I10 Essential (primary) hypertension; E10.40 Type 1 diabetes mellitus with diabetic neuropathy, unspecified; F17.210 Nicotine dependence, cigarettes, uncomplicated; Z79.899 Other long term (current) drug therapy; Z79.4 Long term (current) use of insulin; Z88.6 Allergy status to analgesic agent; Y83.8 Other surgical procedures as the cause of abnormal reaction of the patient, or of later complication, without mention of misadventure at the time of the procedure; Y92.89 Other specified places as the place of occurrence of the external cause

== ENCOUNTER 2019-12-27 23:16 | Emergency (ER) | payer OTHER ==
[~2019-12-27] VITALS: Wt 72.6 kg
[2019-12-27 23:25] VITALS: BP 133/86
[2019-12-28 00:01] LABS: BASO # 0.1 10*3/uL (0.0-0.1); BASO % 0.6 % (0.0-1.0); EOS # 0.4 10*3/uL (0.0-0.4); EOS % 3.8 % (1.0-4.0); HEMATOCRIT 39.1 % (42.0-52.0); LYMPH # 2.9 10*3/uL (1.3-4.4); LYMPH % 26.6 % (27.0-41.0); MEAN CELL VOLUME 90.5 fl (80.0-94.0); MEAN CORPUSCULAR HGB 30.3 pg (27.0-31.0); MEAN CORPUSCULAR HGB CONC 33.5 g/dl (33.0-37.0); MEAN PLATELET VOLUME 11.1 fl (9.6-12.3); MONO # 0.7 10*3/uL (0.1-1.0); NEUT # 6.9 10*3/uL (2.3-7.9); NEUT % 62.8 % (47.0-73.0); PLATELET COUNT AUTOMATED 217 10*3/uL (130-400); RED BLOOD COUNT 4.32 10*6/uL (4.50-5.90); RED CELL DISTRI WIDTH 12.2 % (0-14.5); WHITE BLOOD COUNT 10.9 10*3/uL (4.8-10.8)
[2019-12-28 00:12] LABS: ALBUMIN 3.6 gm/dl (3.1-4.5); ALKALINE PHOSPHATASE 101 U/L (45-117); BUN 13 mg/dl (7-24); CHLORIDE 106 mmol/L (98-107); CREATININE 1.25 mg/dL (0.70-1.30); POTASSIUM 3.9 mmol/L (3.5-5.1); SGOT/AST 16 IU/L (3-35); SGPT/ALT 25 U/L (12-78); SODIUM 138 mmol/L (136-145); TOTAL PROTEIN 7.3 gm/dL (6.4-8.2)
[2019-12-28] MEDS ORDERED: VIBRAMYCIN100 MG PO (03:12)
== END 2019-12-28 03:25 | disposition home or self-care (01) ==
LOC: ED 23:16
PROVIDERS: Nurse Practitioner Family
DX: T87.43 Infection of amputation stump, right lower extremity (principal); F17.210 Nicotine dependence, cigarettes, uncomplicated; Z88.6 Allergy status to analgesic agent; Z79.899 Other long term (current) drug therapy; Y92.89 Other specified places as the place of occurrence of the external cause

== ENCOUNTER 2020-01-22 18:32 | Emergency (ER) | payer OTHER ==
[~2020-01-22] VITALS: Wt 73.5 kg
[2020-01-22 18:35] VITALS: BP 132/80
[2020-01-22] MEDS ORDERED: VIBRAMYCIN100 MG PO (19:39)
[2020-01-22] MEDS ORDERED: SEPTDS PO (19:39)
== END 2020-01-22 19:55 | disposition left against medical advice (07) ==
LOC: ED 18:32
DX: A49.02 Methicillin resistant Staphylococcus aureus infection, unspecified site (principal); E11.9 Type 2 diabetes mellitus without complications; Z88.8 Allergy status to other drugs, medicaments and biological substances; Z79.899 Other long term (current) drug therapy; Z79.4 Long term (current) use of insulin

== ENCOUNTER 2020-11-02 22:19 | Emergency (ER) | payer OTHER, MEDICAID ==
[~2020-11-02] VITALS: Ht 175.2 cm; Wt 70.3 kg
[2020-11-02 23:14] LABS: BASO # 0.1 10*3/uL (0.0-0.1); BASO % 0.4 % (0.0-1.0); EOS # 0.1 10*3/uL (0.0-0.4); EOS % 0.5 % (1.0-4.0); HEMATOCRIT 38.5 % (42.0-52.0); LYMPH # 1.6 10*3/uL (1.3-4.4); LYMPH % 12.2 % (27.0-41.0); MEAN CELL VOLUME 90.8 fl (80.0-94.0); MEAN CORPUSCULAR HGB 31.1 pg (27.0-31.0); MEAN CORPUSCULAR HGB CONC 34.3 g/dl (33.0-37.0); MEAN PLATELET VOLUME 10.9 fl (9.6-12.3); MONO # 0.9 10*3/uL (0.1-1.0); MONO % 6.8 % (3.0-9.0); NEUT # 10.3 10*3/uL (2.3-7.9); NEUT % 79.8 % (47.0-73.0); PLATELET COUNT AUTOMATED 208 10*3/uL (130-400); RED BLOOD COUNT 4.24 10*6/uL (4.50-5.90); RED CELL DISTRI WIDTH 12.3 % (0-14.5); WHITE BLOOD COUNT 12.9 10*3/uL (4.8-10.8)
[2020-11-02 23:33] LABS: ALBUMIN 3.3 gm/dl (3.1-4.5); ALKALINE PHOSPHATASE 101 U/L (45-117); BUN 20 mg/dl (7-24); CHLORIDE 100 mmol/L (98-107); CREATININE 1.32 mg/dL (0.70-1.30); POTASSIUM 3.9 mmol/L (3.5-5.1); SGOT/AST 263 IU/L (3-35); SGPT/ALT 75 U/L (12-78); SODIUM 133 mmol/L (136-145); TOTAL PROTEIN 7.1 gm/dL (6.4-8.2)
[2020-11-03 02:00] VITALS: BP 114/86
== END 2020-11-03 02:57 | disposition short-term general hospital (02) ==
LOC: ED 22:19
PROVIDERS: Internal Medicine
DX: I21.3 ST elevation (STEMI) myocardial infarction of unspecified site (principal); R73.9 Hyperglycemia, unspecified; D72.829 Elevated white blood cell count, unspecified; Z88.8 Allergy status to other drugs, medicaments and biological substances; Z79.899 Other long term (current) drug therapy; Z79.4 Long term (current) use of insulin; Z98.890 Other specified postprocedural states

== ENCOUNTER → 2020-12-04 | Outpatient (CLI) | payer OTHER, MEDICAID ==
[2020-12-04 13:26] LABS: ALBUMIN 3.7 gm/dl (3.1-4.5); ALKALINE PHOSPHATASE 150 U/L (45-117); BUN 12 mg/dl (7-24); CHLORIDE 106 mmol/L (98-107); CHOLESTEROL 102 mg/dL (<200); CREATININE 0.98 mg/dL (0.70-1.30); FREE T4 0.97 ng/dl (0.76-1.46); LDL CHOLESTEROL 34 mg/dL (9-159); POTASSIUM 4.5 mmol/L (3.5-5.1); SGOT/AST 30 IU/L (3-35); SGPT/ALT 55 U/L (12-78); SODIUM 140 mmol/L (136-145); TOTAL PROTEIN 7.5 gm/dL (6.4-8.2); TRIGLYCERIDES 68 mg/dl (<150)
[2020-12-04 13:31] LABS: THYROID STIM HORMONE (HS) 0.654 uIU/ml (0.358-4.75)
== END | disposition home or self-care (01) ==
LOC: LAB 11:51
PROVIDERS: ATTEND Internal Medicine
DX: E10.65 Type 1 diabetes mellitus with hyperglycemia (principal); E55.9 Vitamin D deficiency, unspecified; E04.9 Nontoxic goiter, unspecified

== ENCOUNTER 2021-01-31 06:25 | Emergency (ER) | payer OTHER, MEDICAID ==
[~2021-01-31] VITALS: Ht 172.7 cm; Wt 72.6 kg
[2021-01-31 06:56] LABS: BASO # 0.1 10*3/uL (0.0-0.1); BASO % 0.5 % (0.0-1.0); EOS # 0.2 10*3/uL (0.0-0.4); EOS % 1.7 % (1.0-4.0); HEMATOCRIT 39.6 % (42.0-52.0); LYMPH # 2.4 10*3/uL (1.3-4.4); LYMPH % 21.4 % (27.0-41.0); MEAN CELL VOLUME 88.6 fl (80.0-94.0); MEAN CORPUSCULAR HGB 29.8 pg (27.0-31.0); MEAN CORPUSCULAR HGB CONC 33.6 g/dl (33.0-37.0); MEAN PLATELET VOLUME 11.3 fl (9.6-12.3); MONO # 0.8 10*3/uL (0.1-1.0); MONO % 7.1 % (3.0-9.0); NEUT # 7.6 10*3/uL (2.3-7.9); PLATELET COUNT AUTOMATED 217 10*3/uL (130-400); RED BLOOD COUNT 4.47 10*6/uL (4.50-5.90); RED CELL DISTRI WIDTH 12.6 % (0-14.5); WHITE BLOOD COUNT 11.1 10*3/uL (4.8-10.8)
[2021-01-31 07:10] LABS: CREATININE 1.83 mg/dL (0.70-1.30); POTASSIUM 4.2 mmol/L (3.5-5.1); TOTAL PROTEIN 7.9 gm/dL (6.4-8.2)
== END 2021-01-31 11:19 | disposition home or self-care (01) ==
LOC: ED 06:25
PROVIDERS: Internal Medicine
DX: R05 Cough (principal); Z20.822 Contact with and (suspected) exposure to COVID-19; R06.02 Shortness of breath; J02.9 Acute pharyngitis, unspecified; F17.210 Nicotine dependence, cigarettes, uncomplicated; Z88.6 Allergy status to analgesic agent; Z79.899 Other long term (current) drug therapy; Z79.4 Long term (current) use of insulin

== ENCOUNTER → 2021-02-15 | Outpatient (CLI) | payer OTHER, MEDICAID | LOC: WOUNDCARE 02:13 | PROVIDERS: ATTEND Nurse Practitioner | DX: E10.622 Type 1 diabetes mellitus with other skin ulcer (principal); L89.893 Pressure ulcer of other site, stage 3; L97.812 Non-pressure chronic ulcer of other part of right lower leg with fat layer exposed; E10.65 Type 1 diabetes mellitus with hyperglycemia; E10.40 Type 1 diabetes mellitus with diabetic neuropathy, unspecified; E10.69 Type 1 diabetes mellitus with other specified complication; M86.9 Osteomyelitis, unspecified; F17.210 Nicotine dependence, cigarettes, uncomplicated; Z89.511 Acquired absence of right leg below knee; Z79.4 Long term (current) use of insulin; Z79.82 Long term (current) use of aspirin; Z79.899 Other long term (current) drug therapy ==

== ENCOUNTER 2021-03-19 12:23 | Emergency (ER) | payer OTHER, MEDICAID ==
[~2021-03-19] VITALS: Ht 180.3 cm; Wt 72.6 kg
[2021-03-19 12:31] VITALS: BP 142/83
[2021-03-19 13:08] LABS: BASO # 0.1 10*3/uL (0.0-0.1); BASO % 0.8 % (0.0-1.0); EOS # 0.3 10*3/uL (0.0-0.4); EOS % 4.2 % (1.0-4.0); HEMATOCRIT 36.6 % (42.0-52.0); LYMPH # 1.7 10*3/uL (1.3-4.4); LYMPH % 25.1 % (27.0-41.0); MEAN CELL VOLUME 91.7 fl (80.0-94.0); MEAN CORPUSCULAR HGB 29.8 pg (27.0-31.0); MEAN CORPUSCULAR HGB CONC 32.5 g/dl (33.0-37.0); MEAN PLATELET VOLUME 10.6 fl (9.6-12.3); MONO # 0.5 10*3/uL (0.1-1.0); MONO % 7.2 % (3.0-9.0); NEUT # 4.2 10*3/uL (2.3-7.9); NEUT % 62.5 % (47.0-73.0); PLATELET COUNT AUTOMATED 205 10*3/uL (130-400); RED BLOOD COUNT 3.99 10*6/uL (4.50-5.90); RED CELL DISTRI WIDTH 12.5 % (0-14.5); WHITE BLOOD COUNT 6.7 10*3/uL (4.8-10.8)
[2021-03-19 13:25] LABS: ALKALINE PHOSPHATASE 104 U/L (45-117); BUN 10 mg/dl (7-24); CHLORIDE 102 mmol/L (98-107); CREATININE 1.02 mg/dL (0.70-1.30); POTASSIUM 4.2 mmol/L (3.5-5.1); SGOT/AST 15 IU/L (3-35); SGPT/ALT 25 U/L (12-78); SODIUM 134 mmol/L (136-145); TOTAL PROTEIN 7.3 gm/dL (6.4-8.2)
[2021-03-19] MEDS ORDERED: DOXYCYCLINE HY100 M3 PO (14:36)
[2021-03-19] MEDS ORDERED: CEPHALEXIN500 M1 PO (14:36)
== END 2021-03-19 15:04 | disposition home or self-care (01) ==
LOC: ED 12:23
PROVIDERS: Family Medicine
DX: L03.115 Cellulitis of right lower limb (principal); L08.9 Local infection of the skin and subcutaneous tissue, unspecified; E11.9 Type 2 diabetes mellitus without complications; F17.210 Nicotine dependence, cigarettes, uncomplicated; Z88.1 Allergy status to other antibiotic agents; Z88.6 Allergy status to analgesic agent; Z79.2 Long term (current) use of antibiotics; Z79.4 Long term (current) use of insulin; Z79.899 Other long term (current) drug therapy; Z89.511 Acquired absence of right leg below knee

== ENCOUNTER → 2021-03-21 | Outpatient (CLI) | payer OTHER, MEDICAID ==
[~2021-03-21] MED LIST changes: +DOXYCYCLINE HY100 M3 PO
== END ==
LOC: WOUNDCARE 00:43
PROVIDERS: ATTEND Nurse Practitioner Family
DX: E10.622 Type 1 diabetes mellitus with other skin ulcer (principal); L89.893 Pressure ulcer of other site, stage 3; L97.812 Non-pressure chronic ulcer of other part of right lower leg with fat layer exposed; E10.65 Type 1 diabetes mellitus with hyperglycemia; E10.40 Type 1 diabetes mellitus with diabetic neuropathy, unspecified; E10.69 Type 1 diabetes mellitus with other specified complication; M86.9 Osteomyelitis, unspecified; F17.210 Nicotine dependence, cigarettes, uncomplicated; Z89.511 Acquired absence of right leg below knee

== ENCOUNTER → 2021-04-04 | Outpatient (CLI) | payer OTHER, MEDICAID | LOC: WOUNDCARE 00:28 | PROVIDERS: ATTEND Nurse Practitioner Family | DX: E10.622 Type 1 diabetes mellitus with other skin ulcer (principal); L89.890 Pressure ulcer of other site, unstageable; L97.812 Non-pressure chronic ulcer of other part of right lower leg with fat layer exposed; E10.65 Type 1 diabetes mellitus with hyperglycemia; E10.40 Type 1 diabetes mellitus with diabetic neuropathy, unspecified; E10.69 Type 1 diabetes mellitus with other specified complication; M86.9 Osteomyelitis, unspecified; F17.210 Nicotine dependence, cigarettes, uncomplicated; Z89.511 Acquired absence of right leg below knee ==

== ENCOUNTER → 2021-04-12 | Outpatient (CLI) | payer OTHER, MEDICAID | LOC: WOUNDCARE 00:57 | PROVIDERS: ATTEND Nurse Practitioner Family | DX: E10.622 Type 1 diabetes mellitus with other skin ulcer (principal); L89.890 Pressure ulcer of other site, unstageable; L97.812 Non-pressure chronic ulcer of other part of right lower leg with fat layer exposed; E10.65 Type 1 diabetes mellitus with hyperglycemia; E10.40 Type 1 diabetes mellitus with diabetic neuropathy, unspecified; E10.69 Type 1 diabetes mellitus with other specified complication; M86.9 Osteomyelitis, unspecified; F17.210 Nicotine dependence, cigarettes, uncomplicated; Z89.511 Acquired absence of right leg below knee ==

== ENCOUNTER → 2021-04-20 | Outpatient (CLI) | payer OTHER, MEDICAID | LOC: WOUNDCARE 00:54 | PROVIDERS: ATTEND Nurse Practitioner Family | DX: E10.622 Type 1 diabetes mellitus with other skin ulcer (principal); L89.890 Pressure ulcer of other site, unstageable; L97.812 Non-pressure chronic ulcer of other part of right lower leg with fat layer exposed; E10.65 Type 1 diabetes mellitus with hyperglycemia; E10.40 Type 1 diabetes mellitus with diabetic neuropathy, unspecified; E10.69 Type 1 diabetes mellitus with other specified complication; M86.9 Osteomyelitis, unspecified; F17.210 Nicotine dependence, cigarettes, uncomplicated; Z89.511 Acquired absence of right leg below knee ==

== ENCOUNTER → 2021-04-20 | Outpatient (CLI) | payer OTHER, MEDICAID | END | disposition home or self-care (01) | LOC: CT 04-10 13:00 | PROVIDERS: ATTEND Nurse Practitioner Family | DX: L89.890 Pressure ulcer of other site, unstageable (principal); Z89.511 Acquired absence of right leg below knee ==

== ENCOUNTER → 2021-05-02 | Outpatient (CLI) | payer OTHER, MEDICAID | LOC: WOUNDCARE 04:06 | PROVIDERS: ATTEND Nurse Practitioner Family | DX: E10.622 Type 1 diabetes mellitus with other skin ulcer (principal); L89.890 Pressure ulcer of other site, unstageable; L97.812 Non-pressure chronic ulcer of other part of right lower leg with fat layer exposed; E10.65 Type 1 diabetes mellitus with hyperglycemia; E10.40 Type 1 diabetes mellitus with diabetic neuropathy, unspecified; E10.69 Type 1 diabetes mellitus with other specified complication; M86.9 Osteomyelitis, unspecified; F17.210 Nicotine dependence, cigarettes, uncomplicated; Z89.511 Acquired absence of right leg below knee ==

== ENCOUNTER 2021-09-07 19:27 | Inpatient (IN) | payer OTHER, MEDICAID ==
[~2021-09-07] VITALS: Ht 177.8 cm; Wt 71.3 kg
[~2021-09-07 19:27] MED LIST changes: +ASPIRIN ADULT L81 M1 PO; +EFFIENT10 M1 PO; +HUMALOG100 UNIT/2 SQ; +LANTUS SOL100 UNIT/1 SC; +LIPITOR40 MG PO; +METOPROLOL SUCC50 M1 PO; +PANTOPRAZOLE SO40 MG PO
[2021-09-07 19:39] VITALS: BP 119/45
[2021-09-07 21:20] LABS: MANUAL DIFF REFLEX YES; MEAN CELL VOLUME 87.9 fl (80.0-94.0); MEAN CORPUSCULAR HGB 29.5 pg (27.0-31.0); MEAN CORPUSCULAR HGB CONC 33.5 g/dl (33.0-37.0); PLATELET COUNT AUTOMATED 227 10*3/uL (130-400); RED BLOOD COUNT 4.21 10*6/uL (4.50-5.90); WHITE BLOOD COUNT 21.5 10*3/uL (4.8-10.8)
[2021-09-07 21:35] LABS: ALKALINE PHOSPHATASE 134 U/L (45-117); BUN 19 mg/dl (7-24); CHLORIDE 100 mmol/L (98-107); CREATININE 1.39 mg/dL (0.70-1.30); POTASSIUM 3.8 mmol/L (3.5-5.1); SGOT/AST 7 IU/L (3-35); SGPT/ALT 16 U/L (12-78); SODIUM 132 mmol/L (136-145)
[2021-09-07 21:38] LABS: PLATELET SUFFICIENCY NORMAL (NORMAL); TOTAL CELLS COUNTED 100 #CELLS
[2021-09-07 23:00] VITALS: BP 120/52
[2021-09-08] VITALS (9 sets, daily range): BP systolic 89–149; BP diastolic 50–83
[2021-09-08] MEDS ORDERED: GABAPENTIN100 M2 PO (01:54)
[2021-09-08 06:09] LABS: ALKALINE PHOSPHATASE 104 U/L (45-117); BUN 14 mg/dl (7-24); CHLORIDE 107 mmol/L (98-107); CREATININE 0.92 mg/dL (0.70-1.30); SGOT/AST 11 IU/L (3-35); SGPT/ALT 13 U/L (12-78); SODIUM 136 mmol/L (136-145); TOTAL PROTEIN 6.5 gm/dL (6.4-8.2)
[2021-09-08 06:20] LABS: BASO % 0.1 % (0.0-1.0); HEMATOCRIT 35.1 % (42.0-52.0); LYMPH # 1.2 10*3/uL (1.3-4.4); LYMPH % 6.6 % (27.0-41.0); MEAN CELL VOLUME 89.8 fl (80.0-94.0); MEAN CORPUSCULAR HGB 29.9 pg (27.0-31.0); MEAN CORPUSCULAR HGB CONC 33.3 g/dl (33.0-37.0); MEAN PLATELET VOLUME 11.7 fl (9.6-12.3); MONO # 0.9 10*3/uL (0.1-1.0); MONO % 4.7 % (3.0-9.0); NEUT # 15.8 10*3/uL (2.3-7.9); NEUT % 88.2 % (47.0-73.0); PLATELET COUNT AUTOMATED 210 10*3/uL (130-400); RED BLOOD COUNT 3.91 10*6/uL (4.50-5.90); WHITE BLOOD COUNT 17.9 10*3/uL (4.8-10.8)
[2021-09-08 06:24] LABS: ACT PARTIAL THROMBO TIME 34.5 SECONDS (20.0-32.1); INTERNATIONAL NORM RATIO 1.2 (2.0-3.5)
[2021-09-09] VITALS: BP 120/72
[2021-09-09 06:05] LABS: BUN 11 mg/dl (7-24); CHLORIDE 109 mmol/L (98-107); CREATININE 0.83 mg/dL (0.70-1.30); POTASSIUM 3.7 mmol/L (3.5-5.1); SODIUM 141 mmol/L (136-145)
[2021-09-09 06:44] LABS: BASO % 0.4 % (0.0-1.0); EOS # 0.2 10*3/uL (0.0-0.4); HEMATOCRIT 27.6 % (42.0-52.0); LYMPH # 2.1 10*3/uL (1.3-4.4); LYMPH % 20.3 % (27.0-41.0); MEAN CELL VOLUME 91.4 fl (80.0-94.0); MEAN CORPUSCULAR HGB 29.8 pg (27.0-31.0); MEAN CORPUSCULAR HGB CONC 32.6 g/dl (33.0-37.0); MONO # 0.7 10*3/uL (0.1-1.0); MONO % 6.6 % (3.0-9.0); NEUT # 7.1 10*3/uL (2.3-7.9); NEUT % 70.4 % (47.0-73.0); PLATELET COUNT AUTOMATED 195 10*3/uL (130-400); RED BLOOD COUNT 3.02 10*6/uL (4.50-5.90); RED CELL DISTRI WIDTH 12.2 % (0-14.5); WHITE BLOOD COUNT 10.1 10*3/uL (4.8-10.8)
[2021-09-09 08:00] VITALS: BP 130/84
[2021-09-09 12:00] VITALS: BP 125/74
[2021-09-09 12:06] LABS: ACID FAST SPEC PROCESSING Tissue Grinding (.)
[2021-09-09 12:06] LABS: ACID FAST SPEC PROCESSING Tissue Grinding (.)
[2021-09-09 12:06] LABS: ACID FAST SPEC PROCESSING Tissue Grinding (.)
[2021-09-09 16:00] VITALS: BP 132/84
[2021-09-09 20:00] VITALS: BP 136/80
[2021-09-10] VITALS: BP 108/63
[2021-09-10 06:30] LABS: BUN 7 mg/dl (7-24); CHLORIDE 106 mmol/L (98-107); CREATININE 0.81 mg/dL (0.70-1.30); POTASSIUM 3.2 mmol/L (3.5-5.1); SODIUM 140 mmol/L (136-145)
[2021-09-10 06:34] LABS: HEMATOCRIT 27.5 % (42.0-52.0); MEAN CORPUSCULAR HGB 29.8 pg (27.0-31.0); MEAN CORPUSCULAR HGB CONC 33.5 g/dl (33.0-37.0); MEAN PLATELET VOLUME 11.5 fl (9.6-12.3); PLATELET COUNT AUTOMATED 202 10*3/uL (130-400); RED BLOOD COUNT 3.09 10*6/uL (4.50-5.90); RED CELL DISTRI WIDTH 12.2 % (0-14.5); WHITE BLOOD COUNT 8.2 10*3/uL (4.8-10.8)
[2021-09-10 06:35] LABS: MANUAL DIFF REFLEX YES
[2021-09-10 07:17] LABS: BASOPHILS 1 % (0-1); BURR CELLS FEW; OVALOCYTES FEW; PLATELET SUFFICIENCY NORMAL (NORMAL); POLYCHROMASIA SLIGHT; ROULEAUX SLIGHT; TOTAL CELLS COUNTED 100 #CELLS
[2021-09-10 08:00] VITALS: BP 93/79
[2021-09-10 12:00] VITALS: BP 139/89; BP 93/79
[2021-09-10 16:00] VITALS: BP 117/75
[2021-09-10 20:00] VITALS: BP 134/80
[2021-09-11] VITALS: BP 110/64
[2021-09-11 06:11] LABS: HEMATOCRIT 26.4 % (42.0-52.0); MEAN CELL VOLUME 88.6 fl (80.0-94.0); MEAN CORPUSCULAR HGB 29.5 pg (27.0-31.0); MEAN CORPUSCULAR HGB CONC 33.3 g/dl (33.0-37.0); PLATELET COUNT AUTOMATED 222 10*3/uL (130-400); RED BLOOD COUNT 2.98 10*6/uL (4.50-5.90); RED CELL DISTRI WIDTH 12.1 % (0-14.5); WHITE BLOOD COUNT 6.6 10*3/uL (4.8-10.8)
[2021-09-11 06:19] LABS: MANUAL DIFF REFLEX YES
[2021-09-11 06:24] LABS: CHLORIDE 110 mmol/L (98-107); POTASSIUM 3.2 mmol/L (3.5-5.1); SODIUM 143 mmol/L (136-145)
[2021-09-11 06:30] LABS: BUN 6 mg/dl (7-24)
[2021-09-11 07:32] LABS: ATYPICAL LYMPHS 1 % (0-0); PLATELET SUFFICIENCY NORMAL (NORMAL); TOTAL CELLS COUNTED 100 #CELLS
[2021-09-11 08:00] VITALS: BP 133/78
[2021-09-11 12:00] VITALS: BP 144/83
[2021-09-11 16:00] VITALS: BP 136/72
[2021-09-11 20:00] VITALS: BP 128/87
[2021-09-12] VITALS: BP 144/77
[2021-09-12 06:32] LABS: HEMATOCRIT 26.5 % (42.0-52.0); MEAN CELL VOLUME 88.6 fl (80.0-94.0); MEAN CORPUSCULAR HGB 29.4 pg (27.0-31.0); MEAN CORPUSCULAR HGB CONC 33.2 g/dl (33.0-37.0); PLATELET COUNT AUTOMATED 268 10*3/uL (130-400); RED BLOOD COUNT 2.99 10*6/uL (4.50-5.90); WHITE BLOOD COUNT 7.9 10*3/uL (4.8-10.8)
[2021-09-12 06:38] LABS: MANUAL DIFF REFLEX YES
[2021-09-12 07:00] LABS: BUN 6 mg/dl (7-24); CHLORIDE 109 mmol/L (98-107); CREATININE 0.71 mg/dL (0.70-1.30); POTASSIUM 3.3 mmol/L (3.5-5.1); SODIUM 143 mmol/L (136-145)
[2021-09-12 07:09] LABS: BASOPHILS 1 % (0-1); TOTAL CELLS COUNTED 100 #CELLS
[2021-09-12 07:10] LABS: OVALOCYTES FEW; PLATELET SUFFICIENCY NORMAL (NORMAL); POLYCHROMASIA SLIGHT
[2021-09-12 08:00] VITALS: BP 140/98
[2021-09-12 12:00] VITALS: BP 137/82
[2021-09-12] MEDS ORDERED: DALVANCE500 MG IV (14:05)
[2021-09-12] MEDS ORDERED: LEVOFLOXACIN750 M2 PO (14:05)
== END 2021-09-12 14:54 | disposition home or self-care (01) | DRG 853 ==
LOC: ED 19:27 → 5E 09-08 00:27 → EDHOLD 09-08 00:27 → 5E 09-08 00:44
PROVIDERS: Emergency Medicine; Hospitalist; Podiatrist; Student in an Organized Health Care Education/Training Program; ADMIT Internal Medicine; ATTEND Internal Medicine
PROC: 0QBP0ZX Excision of Left Metatarsal, Open Approach, Diagnostic (ICD-10-PCS; principal; 2021-09-08)
PROC: 0JBR0ZZ Excision of Left Foot Subcutaneous Tissue and Fascia, Open Approach (ICD-10-PCS; 2021-09-08)
PROC: 2W1TX6Z Compression of Left Foot using Pressure Dressing (ICD-10-PCS; 2021-09-08)
DX: A41.9 Sepsis, unspecified organism (principal); M72.6 Necrotizing fasciitis; N17.0 Acute kidney failure with tubular necrosis; L03.116 Cellulitis of left lower limb; E44.1 Mild protein-calorie malnutrition; E87.1 Hypo-osmolality and hyponatremia; Z88.8 Allergy status to other drugs, medicaments and biological substances; Z88.5 Allergy status to narcotic agent; Z88.6 Allergy status to analgesic agent; Z88.1 Allergy status to other antibiotic agents; D64.9 Anemia, unspecified; R65.20 Severe sepsis without septic shock; E10.65 Type 1 diabetes mellitus with hyperglycemia; E10.42 Type 1 diabetes mellitus with diabetic polyneuropathy; F41.9 Anxiety disorder, unspecified; I10 Essential (primary) hypertension; I25.10 Atherosclerotic heart disease of native coronary artery without angina pectoris; G89.29 Other chronic pain; Z83.3 Family history of diabetes mellitus; Z82.49 Family history of ischemic heart disease and other diseases of the circulatory system; Z89.511 Acquired absence of right leg below knee; Z68.22 Body mass index [BMI] 22.0-22.9, adult

== ENCOUNTER → 2021-10-04 | Outpatient (CLI) | payer OTHER, MEDICAID ==
[~2021-10-04] MED LIST changes: +DALVANCE500 MG IV; +GABAPENTIN100 M2 PO; +LEVOFLOXACIN750 M2 PO
[2021-10-04 13:35] LABS: BASO # 0.1 10*3/uL (0.0-0.1); BASO % 0.7 % (0.0-1.0); EOS # 0.4 10*3/uL (0.0-0.4); HEMATOCRIT 34.8 % (42.0-52.0); LYMPH # 2.3 10*3/uL (1.3-4.4); LYMPH % 26.1 % (27.0-41.0); MEAN CELL VOLUME 87.9 fl (80.0-94.0); MEAN CORPUSCULAR HGB CONC 31.9 g/dl (33.0-37.0); MEAN PLATELET VOLUME 10.1 fl (9.6-12.3); MONO # 0.6 10*3/uL (0.1-1.0); MONO % 6.8 % (3.0-9.0); NEUT # 5.4 10*3/uL (2.3-7.9); NEUT % 61.2 % (47.0-73.0); PLATELET COUNT AUTOMATED 278 10*3/uL (130-400); RED BLOOD COUNT 3.96 10*6/uL (4.50-5.90); RED CELL DISTRI WIDTH 12.4 % (0-14.5); RETICULOCYTE % 1.78 % (0.50-2.50); WHITE BLOOD COUNT 8.8 10*3/uL (4.8-10.8)
[2021-10-04 13:53] LABS: ALKALINE PHOSPHATASE 137 U/L (45-117); BUN 8 mg/dl (7-24); CHLORIDE 107 mmol/L (98-107); CHOLESTEROL 74 mg/dL (<200); CREATININE 0.99 mg/dL (0.70-1.30); GAMMA GLUTAMYL TRANSPEPTIDASE 19 U/L (15-85); IRON 26 ug/dL (65-175); LDL CHOLESTEROL 19 mg/dL (9-159); POTASSIUM 4.1 mmol/L (3.5-5.1); SGOT/AST 18 IU/L (3-35); SGPT/ALT 28 U/L (12-78); SODIUM 140 mmol/L (136-145); TOTAL IRON BINDING CAPACITY 251 ug/dl (250-450); TOTAL PROTEIN 7.5 gm/dL (6.4-8.2); TRIGLYCERIDES 66 mg/dl (<150)
[2021-10-04 14:53] LABS: FERRITIN 19.8 ng/mL (22.0-322.0); VITAMIN D, 25-HYDROXY 32.6 ng/mL (30-100)
== END | disposition home or self-care (01) ==
LOC: LAB 13:20
PROVIDERS: ATTEND Family Medicine
DX: E78.5 Hyperlipidemia, unspecified (principal); E55.9 Vitamin D deficiency, unspecified; R79.89 Other specified abnormal findings of blood chemistry; R53.83 Other fatigue; R74.8 Abnormal levels of other serum enzymes

== ENCOUNTER → 2021-11-21 | Day surgery (SDC) | payer OTHER, MEDICAID ==
[2021-11-21] VITALS (9 sets, daily range): BP systolic 119–134; BP diastolic 76–93
[~2021-11-21] VITALS: Ht 180.3 cm; Wt 71.2 kg
[2021-11-22 09:07] LABS: ACID FAST SPEC PROCESSING Tissue Grinding (.)
== END | disposition home or self-care (01) ==
LOC: SDC 11-16 08:45
PROVIDERS: Podiatrist Foot & Ankle Surgery; ATTEND Podiatrist
DX: M86.8X7 Other osteomyelitis, ankle and foot (principal); K21.9 Gastro-esophageal reflux disease without esophagitis; F32.9 Major depressive disorder, single episode, unspecified; F41.9 Anxiety disorder, unspecified; G47.00 Insomnia, unspecified; I25.10 Atherosclerotic heart disease of native coronary artery without angina pectoris; I25.2 Old myocardial infarction; E11.9 Type 2 diabetes mellitus without complications; F17.210 Nicotine dependence, cigarettes, uncomplicated; Z79.899 Other long term (current) drug therapy

== ENCOUNTER → 2022-05-20 | Outpatient (CLI) | payer OTHER, MEDICAID ==
[2022-05-20 17:07] LABS: BUN 17 mg/dl (9-23); CHLORIDE 98 mmol/L (98-107); FREE T4 1.06 ng/dl (0.89-1.76); POTASSIUM 4.4 mmol/L (3.4-5.1); THYROID STIM HORMONE (HS) 1.709 uIU/ml (0.550-4.780)
[2022-05-20 17:21] LABS: BILIRUBIN Negative (Negative); BLOOD Negative (Negative); CLARITY Clear (Clear); COLOR Yellow (Yellow); GLUCOSE 3+ (Negative); KETONE Negative (Negative); LEUKO ESTERASE Negative (Negative); NITRITE Negative (Negative); SPECIFIC GRAVITY >= 1.030 (1.001-1.030); UROBILINOGEN 0.2 E.U./dl (0.0-1.0)
== END | disposition home or self-care (01) ==
LOC: LAB 15:38
PROVIDERS: ATTEND Internal Medicine
DX: E10.65 Type 1 diabetes mellitus with hyperglycemia (principal); E04.9 Nontoxic goiter, unspecified; E55.9 Vitamin D deficiency, unspecified

== ENCOUNTER 2023-06-09 19:55 | Emergency (ER) | payer OTHER, MEDICAID ==
[~2023-06-09] VITALS: Ht 180.3 cm; Wt 70.3 kg
[2023-06-09 20:12] VITALS: BP 130/86
[2023-06-09 20:47] LABS: BASO # 0.1 10*3/uL (0.0-0.1); BASO % 1.1 % (0.0-1.0); EOS # 0.1 10*3/uL (0.0-0.4); EOS % 1.9 % (1.0-4.0); HEMATOCRIT 42.3 % (42.0-52.0); LYMPH # 2.3 10*3/uL (1.3-4.4); LYMPH % 44.7 % (27.0-41.0); MEAN CELL VOLUME 92.2 fl (80.0-94.0); MEAN CORPUSCULAR HGB 30.3 pg (27.0-31.0); MEAN CORPUSCULAR HGB CONC 32.9 g/dl (33.0-37.0); MEAN PLATELET VOLUME 11.2 fl (9.6-12.3); MONO # 0.4 10*3/uL (0.1-1.0); MONO % 7.5 % (3.0-9.0); NEUT # 2.3 10*3/uL (2.3-7.9); NEUT % 44.6 % (47.0-73.0); PLATELET COUNT AUTOMATED 199 10*3/uL (130-400); RED BLOOD COUNT 4.59 10*6/uL (4.50-5.90); RED CELL DISTRI WIDTH 11.9 % (0-14.5); WHITE BLOOD COUNT 5.2 10*3/uL (4.8-10.8)
[2023-06-09 20:58] LABS: ACT PARTIAL THROMBO TIME 28.2 SECONDS (20.0-32.1)
[2023-06-09 21:09] LABS: ALKALINE PHOSPHATASE 116 U/L (46-116); BUN 10 mg/dl (9-23); CHLORIDE 101 mmol/L (98-107); CPK 67 U/L (34-171); POTASSIUM 4.8 mmol/L (3.4-5.1); SGPT/ALT 19 U/L (5-49); TOTAL PROTEIN 7.6 gm/dL (6.0-8.0)
[2023-06-09] MEDS ORDERED: XEROFORM PETRO1 EACH T (21:45)
== END 2023-06-09 21:52 | disposition home or self-care (01) ==
LOC: ED 19:55
PROVIDERS: Internal Medicine
DX: T22.211A Burn of second degree of right forearm, initial encounter (principal); T31.0 Burns involving less than 10% of body surface; E11.9 Type 2 diabetes mellitus without complications; R10.2 Pelvic and perineal pain; I25.2 Old myocardial infarction; K21.9 Gastro-esophageal reflux disease without esophagitis; F41.9 Anxiety disorder, unspecified; Z88.1 Allergy status to other antibiotic agents; Z88.8 Allergy status to other drugs, medicaments and biological substances; Z98.890 Other specified postprocedural states; F17.200 Nicotine dependence, unspecified, uncomplicated; X08.8XXA Exposure to other specified smoke, fire and flames, initial encounter; Y93.89 Activity, other specified; Y92.89 Other specified places as the place of occurrence of the external cause; Y99.0 Civilian activity done for income or pay

== ENCOUNTER 2023-08-06 21:07 | Emergency (ER) | payer OTHER ==
[~2023-08-06] VITALS: Ht 170.1 cm; Wt 76.2 kg
[~2023-08-06 21:07] MED LIST changes: +XEROFORM PETRO1 EACH T
[2023-08-06 21:15] VITALS: BP 137/95
[2023-08-06] MEDS ORDERED: ACETAMINOPHEN 325 MG TAB PO ONE (21:30)
[2023-08-06 21:37] LABS: BASO # 0.1 10*3/uL (0.0-0.1); BASO % 0.8 % (0.0-1.0); EOS # 0.3 10*3/uL (0.0-0.4); EOS % 4.7 % (1.0-4.0); LYMPH # 2.4 10*3/uL (1.3-4.4); LYMPH % 33.8 % (27.0-41.0); MEAN CELL VOLUME 92.2 fl (80.0-94.0); MEAN CORPUSCULAR HGB CONC 32.6 g/dl (33.0-37.0); MEAN PLATELET VOLUME 10.9 fl (9.6-12.3); MONO # 0.5 10*3/uL (0.1-1.0); MONO % 6.7 % (3.0-9.0); NEUT # 3.9 10*3/uL (2.3-7.9); NEUT % 53.9 % (47.0-73.0); PLATELET COUNT AUTOMATED 203 10*3/uL (130-400); RED BLOOD COUNT 4.23 10*6/uL (4.50-5.90); RED CELL DISTRI WIDTH 12.4 % (0-14.5); WHITE BLOOD COUNT 7.2 10*3/uL (4.8-10.8)
[2023-08-06 21:55] LABS: ALKALINE PHOSPHATASE 92 U/L (46-116); BUN 8 mg/dl (9-23); CHLORIDE 103 mmol/L (98-107); POTASSIUM 3.9 mmol/L (3.4-5.1); SGPT/ALT 14 U/L (5-49); TOTAL PROTEIN 6.7 gm/dL (6.0-8.0)
[2023-08-06 22:15] LABS: BILIRUBIN Negative (Negative); BLOOD Negative (Negative); CLARITY Clear (Clear); COLOR Yellow (Yellow); GLUCOSE 3+ (Negative); KETONE Negative (Negative); LEUKO ESTERASE Negative (Negative); NITRITE Negative (Negative); PH 6.5 (4.5-8.0); SPECIFIC GRAVITY 1.025 (1.001-1.030)
[2023-08-06] MEDS ORDERED: MG-AL HYDROXIDE/SIMETICONE 30 ML UDC PO STA (22:17)
[2023-08-06] MEDS ORDERED: Lidocaine Hydrochloride 15 ML UDC PO STA (22:17)
[2023-08-06] MEDS ORDERED: Dicyclomine Hydrochloride 20 MG/10 ML OSYR PO STA (22:17)
[2023-08-06 22:21] LABS: URINE AMPHETAMINES Negative (1000ng/ml); URINE BARBITURATES Negative (200ng/ml); URINE BENZODIAZEPINES Negative (200ng/ml); URINE CANNABINOIDS (THC) Negative (50ng/ml); URINE COCAINE Negative (300ng/ml); URINE METHADONE Negative (300ng/ml); URINE OPIATES Negative (300ng/ml); URINE PHENCYCLIDINE Negative (25ng/ml)
[2023-08-06 22:31] LABS: WBC 0-2 wbc/hpf (0-5)
[2023-08-06] MEDS ORDERED: Meclizine25 MG PO (22:37)
== END 2023-08-06 22:44 | disposition home or self-care (01) ==
LOC: ED 21:07
PROVIDERS: Physician Assistant Medical
DX: R42 Dizziness and giddiness (principal); E10.9 Type 1 diabetes mellitus without complications; I10 Essential (primary) hypertension; I25.2 Old myocardial infarction; F17.210 Nicotine dependence, cigarettes, uncomplicated; Z88.1 Allergy status to other antibiotic agents; Z88.6 Allergy status to analgesic agent; Z88.8 Allergy status to other drugs, medicaments and biological substances; Z79.899 Other long term (current) drug therapy; Z79.4 Long term (current) use of insulin; Z98.890 Other specified postprocedural states; Z95.5 Presence of coronary angioplasty implant and graft

== ENCOUNTER → 2023-09-23 | Outpatient (CLI) | payer MEDICARE, MEDICAID ==
[~2023-09-23] MED LIST changes: +Meclizine25 MG PO
[2023-09-23 13:21] LABS: BILIRUBIN Negative (Negative); BLOOD Negative (Negative); CLARITY Clear (Clear); COLOR Yellow (Yellow); GLUCOSE 3+ (Negative); KETONE Negative (Negative); LEUKO ESTERASE Negative (Negative); NITRITE Negative (Negative); SPECIFIC GRAVITY >= 1.030 (1.001-1.030)
[2023-09-23 13:31] LABS: ALKALINE PHOSPHATASE 100 U/L (46-116); BUN 14 mg/dl (9-23); CHLORIDE 100 mmol/L (98-107); CHOLESTEROL 143 mg/dL (<200); LDL CHOLESTEROL 77 mg/dL (9-159); POTASSIUM 4.8 mmol/L (3.4-5.1); SGPT/ALT 18 U/L (5-49); TOTAL PROTEIN 7.1 gm/dL (6.0-8.0); TRIGLYCERIDES 101 mg/dl (<150)
[2023-09-23 13:37] LABS: EPITHELIAL CELLS 0-2
[2023-09-23 13:38] LABS: BACTERIA TRACE; WBC 0-2 wbc/hpf (0-5)
== END ==
LOC: LAB 12:51
PROVIDERS: ATTEND Internal Medicine
DX: E10.65 Type 1 diabetes mellitus with hyperglycemia (principal); E55.9 Vitamin D deficiency, unspecified; E04.9 Nontoxic goiter, unspecified; E78.5 Hyperlipidemia, unspecified

== ENCOUNTER 2023-12-04 12:25 | Emergency (ER) | payer OTHER ==
[~2023-12-04] VITALS: Ht 180.3 cm; Wt 70.3 kg
[2023-12-04 12:50] VITALS: BP 105/73
[2023-12-04] MEDS ORDERED: SODIUM CHLORIDE 0.9% 1,000 ML IV ONE (13:05)
[2023-12-04 13:12] LABS: BASO # 0.1 10*3/uL (0.0-0.1); BASO % 0.6 % (0.0-1.0); EOS # 0.2 10*3/uL (0.0-0.4); EOS % 2.1 % (1.0-4.0); HEMATOCRIT 40.5 % (42.0-52.0); LYMPH # 2.1 10*3/uL (1.3-4.4); LYMPH % 19.9 % (27.0-41.0); MEAN CELL VOLUME 89.8 fl (80.0-94.0); MEAN CORPUSCULAR HGB 31.5 pg (27.0-31.0); MEAN CORPUSCULAR HGB CONC 35.1 g/dl (33.0-37.0); MEAN PLATELET VOLUME 10.8 fl (9.6-12.3); MONO # 0.6 10*3/uL (0.1-1.0); MONO % 5.3 % (3.0-9.0); NEUT # 7.6 10*3/uL (2.3-7.9); NEUT % 71.9 % (47.0-73.0); PLATELET COUNT AUTOMATED 195 10*3/uL (130-400); RED BLOOD COUNT 4.51 10*6/uL (4.50-5.90); RED CELL DISTRI WIDTH 12.1 % (0-14.5); WHITE BLOOD COUNT 10.5 10*3/uL (4.8-10.8)
[2023-12-04 13:32] LABS: ALKALINE PHOSPHATASE 99 U/L (46-116); BUN 14 mg/dl (9-23); CHLORIDE 99 mmol/L (98-107); POTASSIUM 4.2 mmol/L (3.4-5.1); SGPT/ALT 20 U/L (5-49); TOTAL PROTEIN 7.3 gm/dL (6.0-8.0)
[2023-12-04 13:34] LABS: ACT PARTIAL THROMBO TIME 28.5 SECONDS (20.0-32.1)
[2023-12-04 13:49] LABS: BILIRUBIN Negative (Negative); BLOOD Negative (Negative); CLARITY Clear (Clear); COLOR Yellow (Yellow); GLUCOSE 2+ (Negative); KETONE Negative (Negative); LEUKO ESTERASE Negative (Negative); NITRITE Negative (Negative); PH 6.5 (4.5-8.0); UROBILINOGEN 0.2 E.U./dl (0.0-1.0)
[2023-12-04 14:02] LABS: MUCOUS 1+; RBC 0-2 rbc/hpf (0-2)
[2023-12-04] MEDS ORDERED: Dexamethasone Sodium Phospha 20 MG/5 ML VIAL IM ONE (15:55)
[2023-12-04] MEDS ORDERED: MEDROL DOSEPAK4 MG PO (16:04)
== END 2023-12-04 16:07 | disposition home or self-care (01) ==
LOC: ED 12:25
PROVIDERS: Internal Medicine
DX: R07.89 Other chest pain (principal); R20.0 Anesthesia of skin; R20.2 Paresthesia of skin; I25.2 Old myocardial infarction; F17.210 Nicotine dependence, cigarettes, uncomplicated; Z88.1 Allergy status to other antibiotic agents; Z88.8 Allergy status to other drugs, medicaments and biological substances; Z88.6 Allergy status to analgesic agent; Z79.899 Other long term (current) drug therapy; Z79.4 Long term (current) use of insulin; Z98.890 Other specified postprocedural states; Z89.511 Acquired absence of right leg below knee

== ENCOUNTER → 2024-01-07 | Day surgery (SDC) | payer OTHER ==
[~2024-01-07] VITALS: Ht 180.3 cm; Wt 70.3 kg
[~2024-01-07] MED LIST changes: +ASPIRIN CHEWABL81 MG PO; +BUPIVACAINE 0.5% 30 ML IV ONE; +Lactated Ringer's Solution 1,000 ML IV ONE; +Lidocaine Hydrochloride 2% 5 ML SDV IM ONE; +MEDROL DOSEPAK4 MG PO; +Midazolam Hydrochloride 2 MG/2 ML VIAL IV ONE; +PERCOCET 5-3251 EACH PO; +PROPOFOL 200 MG/20 ML VIAL IV ONE; +Vancomycin Hydrochloride 1,000 MG VIAL T ONE; +ceFAZolin sodium/sodium chlor 20 ML IV ONE; +fentaNYL CITRATE 100 MCG/2 ML VIAL IV ONE
[2024-01-07 09:00] VITALS: BP 117/72
[2024-01-07 11:40] VITALS: BP 102/65
[2024-01-07 11:55] VITALS: BP 105/70
[2024-01-07 12:04] VITALS: BP 104/57
[2024-01-08 19:06] LABS: ACID FAST SPEC PROCESSING Tissue Grinding (.)
== END | disposition home or self-care (01) ==
LOC: SDC 01-02 10:15
PROVIDERS: ATTEND Podiatrist
DX: S91.302A Unspecified open wound, left foot, initial encounter (principal); M21.962 Unspecified acquired deformity of left lower leg; M86.672 Other chronic osteomyelitis, left ankle and foot; I10 Essential (primary) hypertension; I25.10 Atherosclerotic heart disease of native coronary artery without angina pectoris; F41.9 Anxiety disorder, unspecified; E10.40 Type 1 diabetes mellitus with diabetic neuropathy, unspecified; F32.A Depression, unspecified; I25.2 Old myocardial infarction; F17.210 Nicotine dependence, cigarettes, uncomplicated; Z96.653 Presence of artificial knee joint, bilateral; Z98.890 Other specified postprocedural states; Z88.8 Allergy status to other drugs, medicaments and biological substances; Z88.5 Allergy status to narcotic agent; Z79.82 Long term (current) use of aspirin; Z79.4 Long term (current) use of insulin; Z79.899 Other long term (current) drug therapy; Z83.3 Family history of diabetes mellitus; X58.XXXA Exposure to other specified factors, initial encounter; Y93.89 Activity, other specified; Y92.89 Other specified places as the place of occurrence of the external cause; Y99.8 Other external cause status

== ENCOUNTER → 2024-08-04 | Outpatient (CLI) | payer OTHER ==
[~2024-08-04] MED LIST changes: -BUPIVACAINE 0.5% 30 ML IV ONE; -Lactated Ringer's Solution 1,000 ML IV ONE; -Lidocaine Hydrochloride 2% 5 ML SDV IM ONE; -Midazolam Hydrochloride 2 MG/2 ML VIAL IV ONE; -PROPOFOL 200 MG/20 ML VIAL IV ONE; -Vancomycin Hydrochloride 1,000 MG VIAL T ONE; -ceFAZolin sodium/sodium chlor 20 ML IV ONE; -fentaNYL CITRATE 100 MCG/2 ML VIAL IV ONE
[2024-08-04 15:30] LABS: BASO # 0.1 10*3/uL (0.0-0.1); EOS # 0.4 10*3/uL (0.0-0.4); EOS % 5.4 % (1.0-4.0); HEMATOCRIT 41.6 % (42.0-52.0); MEAN CELL VOLUME 91.8 fl (80.0-94.0); MEAN CORPUSCULAR HGB 30.7 pg (27.0-31.0); MEAN CORPUSCULAR HGB CONC 33.4 g/dl (33.0-37.0); MONO # 0.5 10*3/uL (0.1-1.0); MONO % 6.7 % (3.0-9.0); NEUT # 3.1 10*3/uL (2.3-7.9); NEUT % 46.4 % (47.0-73.0); PLATELET COUNT AUTOMATED 199 10*3/uL (130-400); RED BLOOD COUNT 4.53 10*6/uL (4.50-5.90); RED CELL DISTRI WIDTH 11.9 % (0-14.5); RETICULOCYTE % 1.27 % (0.50-2.50); WHITE BLOOD COUNT 6.7 10*3/uL (4.8-10.8)
[2024-08-04 18:19] LABS: ALKALINE PHOSPHATASE 90 U/L (46-116); BUN 9 mg/dl (9-23); GAMMA GLUTAMYL TRANSPEPTIDASE 19 U/L (0-73); SGPT/ALT 19 U/L (5-49); T3 UPTAKE 29.2 % (22.4-36.7); THYROXINE (T4) TOTAL 8.9 ug/dl (4.5-10.9)
[2024-08-04 18:46] LABS: CHLORIDE 101 mmol/L (98-107); POTASSIUM 4.3 mmol/L (3.4-5.1)
[2024-08-04 18:47] LABS: CHOLESTEROL 148 mg/dL (<200); LDL CHOLESTEROL 40 mg/dL (9-159); TRIGLYCERIDES 310 mg/dl (<150)
== END | disposition home or self-care (01) ==
LOC: LAB 15:06
PROVIDERS: ATTEND Family Medicine
DX: R79.89 Other specified abnormal findings of blood chemistry (principal); R53.83 Other fatigue; E78.5 Hyperlipidemia, unspecified; E10.9 Type 1 diabetes mellitus without complications; E55.9 Vitamin D deficiency, unspecified

== ENCOUNTER 2024-11-22 10:46 | Emergency (ER) | payer OTHER ==
[~2024-11-22] VITALS: Ht 180.3 cm; Wt 74.8 kg
[2024-11-22 11:12] VITALS: BP 136/92
== END 2024-11-22 13:02 | disposition home or self-care (01) ==
LOC: ED 10:46
DX: S46.911A Strain of unspecified muscle, fascia and tendon at shoulder and upper arm level, right arm, initial encounter (principal); I10 Essential (primary) hypertension; E10.9 Type 1 diabetes mellitus without complications; Z88.1 Allergy status to other antibiotic agents; Z88.8 Allergy status to other drugs, medicaments and biological substances; Z88.6 Allergy status to analgesic agent; Z79.899 Other long term (current) drug therapy; Z79.4 Long term (current) use of insulin; Z87.891 Personal history of nicotine dependence; X58.XXXA Exposure to other specified factors, initial encounter; Y93.89 Activity, other specified; Y92.89 Other specified places as the place of occurrence of the external cause; Y99.8 Other external cause status

== ENCOUNTER 2024-11-29 13:38 | Emergency (ER) | payer OTHER ==
[~2024-11-29] VITALS: Ht 180.3 cm; Wt 70.3 kg
[2024-11-29 13:45] VITALS: BP 126/88
[2024-11-29] MEDS ORDERED: Metoclopramide Hydrochloride 10 MG/2 ML VIAL IV ONE (14:00)
[2024-11-29] MEDS ORDERED: SODIUM CHLORIDE 0.9% 500 ML IV ONE (14:00)
[2024-11-29] MEDS ORDERED: Ondansetron Hydrochloride 4 MG/2 ML VIAL IV ONE (14:00)
[2024-11-29] MEDS ORDERED: diphenhydrAMINE hydrochloride 50 MG/ML VIAL IV ONE (14:00)
[2024-11-29 14:28] LABS: BASO # 0.1 10*3/uL (0.0-0.1); BASO % 1.8 % (0.0-1.0); EOS # 0.2 10*3/uL (0.0-0.4); EOS % 3.9 % (1.0-4.0); MEAN CELL VOLUME 91.7 fl (80.0-94.0); MEAN CORPUSCULAR HGB 30.4 pg (27.0-31.0); MEAN PLATELET VOLUME 10.8 fl (9.6-12.3); MONO # 0.3 10*3/uL (0.1-1.0); MONO % 6.5 % (3.0-9.0); NEUT # 2.8 10*3/uL (2.3-7.9); NEUT % 54.2 % (47.0-73.0); NUCLEATED RED BLOOD CELL 0.0 % (0.0-0.0); NUCLEATED RED BLOOD CELL 0.0 10*3/uL (0.0-0.0); PLATELET COUNT AUTOMATED 233 10*3/uL (130-400); RED CELL DISTRI WIDTH 11.6 % (0-14.5)
[2024-11-29 14:47] LABS: BUN 11 mg/dl (9-23); CPK 54 U/L (34-171); SGPT/ALT 16 U/L (5-49)
[2024-11-29] MEDS ORDERED: REGLAN10 M1 PO (16:15)
[2024-11-29] MEDS ORDERED: Ondansetron4 MG PO (16:15)
== END 2024-11-29 16:23 | disposition home or self-care (01) ==
LOC: ED 13:38
PROVIDERS: Emergency Medicine
DX: R10.10 Upper abdominal pain, unspecified (principal); T50.905A Adverse effect of unspecified drugs, medicaments and biological substances, initial encounter; R11.0 Nausea; E11.9 Type 2 diabetes mellitus without complications; F17.210 Nicotine dependence, cigarettes, uncomplicated; Z98.890 Other specified postprocedural states; Z88.1 Allergy status to other antibiotic agents; Z89.511 Acquired absence of right leg below knee; Z88.8 Allergy status to other drugs, medicaments and biological substances; Z88.6 Allergy status to analgesic agent; Z79.82 Long term (current) use of aspirin; Z79.899 Other long term (current) drug therapy; Z95.5 Presence of coronary angioplasty implant and graft; Y92.89 Other specified places as the place of occurrence of the external cause

== ENCOUNTER 2025-02-03 13:54 | Emergency (ER) | payer OTHER ==
[~2025-02-03] VITALS: Ht 180.3 cm; Wt 70.3 kg
[~2025-02-03 13:54] MED LIST changes: +Ondansetron4 MG PO; +REGLAN10 M1 PO
[2025-02-03 14:02] VITALS: BP 105/81
[2025-02-03] MEDS ORDERED: Acetaminophen/Oxycodone 5 MG/325 MG TABLET PO ONE (14:15)
[2025-02-03] MEDS ORDERED: PERCOCET 5-3251 EACH PO (14:22)
== END 2025-02-03 14:35 | disposition home or self-care (01) ==
LOC: ED 13:54
DX: M25.561 Pain in right knee (principal); M25.551 Pain in right hip; F17.210 Nicotine dependence, cigarettes, uncomplicated; Z89.511 Acquired absence of right leg below knee; Z88.1 Allergy status to other antibiotic agents; Z88.8 Allergy status to other drugs, medicaments and biological substances; Z88.6 Allergy status to analgesic agent; Z79.899 Other long term (current) drug therapy; Z79.4 Long term (current) use of insulin; Z79.82 Long term (current) use of aspirin; Z98.890 Other specified postprocedural states; Z95.5 Presence of coronary angioplasty implant and graft

== ENCOUNTER → 2025-02-21 | Outpatient (CLI) | payer OTHER ==
[2025-02-21 12:15] LABS: BUN 12 mg/dl (9-23); LDL CHOLESTEROL 74 mg/dL (9-159); SGPT/ALT 21 U/L (5-49)
== END | disposition home or self-care (01) ==
LOC: LAB 10:48
PROVIDERS: ATTEND Internal Medicine Endocrinology, Diabetes & Metabolism
DX: E10.65 Type 1 diabetes mellitus with hyperglycemia (principal); E78.5 Hyperlipidemia, unspecified

== ENCOUNTER 2025-03-26 15:05 | Emergency (ER) | payer OTHER ==
[~2025-03-26] VITALS: Ht 154.9 cm; Wt 64.5 kg
[2025-03-26] MEDS ORDERED: Tdap Vaccine 0.5 ML SYR (Adult Vaccine) IM ONE (15:40)
[2025-03-26] MEDS ORDERED: SODIUM CHLORIDE 0.9% 1,000 ML IV ONE (15:40)
[2025-03-26] MEDS ORDERED: ceFAZolin sodium 1 GM in SYRINGE INFUSION 10 ML IV ONE (15:40)
[2025-03-26] MEDS ORDERED: IOHEXOL 300 MG/ML 100 ML VIAL IV ONE (15:45)
[2025-03-26 16:01] LABS: BASO # 0.1 10*3/uL (0.0-0.1); BASO % 0.5 % (0.0-1.0); EOS # 0.1 10*3/uL (0.0-0.4); EOS % 0.9 % (1.0-4.0); MEAN CELL VOLUME 93.9 fl (80.0-94.0); MEAN CORPUSCULAR HGB 31.0 pg (27.0-31.0); MEAN PLATELET VOLUME 10.9 fl (9.6-12.3); MONO # 0.5 10*3/uL (0.1-1.0); MONO % 4.1 % (3.0-9.0); NEUT # 10.0 10*3/uL (2.3-7.9); NEUT % 84.7 % (47.0-73.0); NUCLEATED RED BLOOD CELL 0.0 % (0.0-0.0); NUCLEATED RED BLOOD CELL 0.0 10*3/uL (0.0-0.0); PLATELET COUNT AUTOMATED 209 10*3/uL (130-400); RED CELL DISTRI WIDTH 12.5 % (0-14.5)
[2025-03-26] MEDS ORDERED: IOHEXOL 300 MG/ML 100 ML VIAL ONE (16:13)
[2025-03-26 16:17] LABS: BUN 15 mg/dl (9-23); SGPT/ALT 38 U/L (5-49)
[2025-03-26 17:50] LABS: BILIRUBIN Negative (Negative); BLOOD Negative (Negative); CLARITY Clear (Clear); COLOR Yellow (Yellow); KETONE Trace (Negative); LEUKO ESTERASE Trace (Negative); NITRITE Negative (Negative); PH 6.5 (4.5-8.0); SPECIFIC GRAVITY >= 1.030 (1.001-1.030); UROBILINOGEN 1.0 E.U./dl (0.0-1.0)
[2025-03-26 18:05] LABS: MUCOUS 1+
[2025-03-26 19:32] VITALS: BP 135/77
== END 2025-03-26 19:39 | disposition short-term general hospital (02) ==
LOC: ED 15:05
PROVIDERS: Nurse Practitioner Family
DX: S42.012A Anterior displaced fracture of sternal end of left clavicle, initial encounter for closed fracture (principal); S22.42XA Multiple fractures of ribs, left side, initial encounter for closed fracture; S40.212A Abrasion of left shoulder, initial encounter; F17.200 Nicotine dependence, unspecified, uncomplicated; E10.9 Type 1 diabetes mellitus without complications; Z79.899 Other long term (current) drug therapy; Z88.1 Allergy status to other antibiotic agents; Z88.5 Allergy status to narcotic agent; Z88.8 Allergy status to other drugs, medicaments and biological substances; Z98.890 Other specified postprocedural states; V29.99XA Rider (driver) (passenger) of other motorcycle injured in unspecified traffic accident, initial encounter; Y93.89 Activity, other specified; Y92.89 Other specified places as the place of occurrence of the external cause; Y99.8 Other external cause status